=== PATIENT | male | born 1995 | race African-American/Black ===

== ENCOUNTER 2019-09-18 19:28 | Emergency (ER) | payer BC, OTHER ==
[2019-09-18] MEDS ORDERED: ONDANSETRON 4 MG (ODT) TAB ONE (21:32)
--- NOTE | 2019-09-18 21:55 | ER ---
Nurse's Notes [facility] Name: Greg Dukes Age: 24 yrs Sex: Male : 1995 Arrival Date: 09/18/2019 Time: 19:32 Bed 14 Private MD: Diagnosis: Vomiting, unspecified;Diarrhea, unspecified;Otalgia, right ear Presentation: 09/18 19:35 Presenting complaint: Patient states: "The past 2 days I've been throwing up, having aj1 diarrhea and for the past month and a half I've been popping in my ear. Yesterday all day my ear was popping and it feels like its stuffed up. I got one of those ear things from [facility] [employer] but that just made it worse" Denies fever. Reports pain to right ear. Transition of care: patient was not received from another setting of care. Onset of symptoms was 2018. Risk Assessment: Do you want to hurt yourself or someone else? Patient reports no desire to harm self or others. Initial Sepsis Screen: Does the patient meet any 2 criteria? No. Patient's initial sepsis screen is negative. Does the patient have a suspected source of infection? No. Patient's initial sepsis screen is negative. Care prior to arrival: None. 19:35 Method Of Arrival: Ambulatory aj1 19:35 Acuity: ALBERTO 4 aj1 Triage Assessment: 19:39 General: Appears in no apparent distress. comfortable, Behavior is calm, cooperative, aj1 appropriate for age. Pain: Complains of pain in right ear. Pain: Pain currently is 7 out of 10 on a pain scale. EENT: Reports ear pain. Neuro: Level of Consciousness is awake, alert, obeys commands. Cardiovascular: Patient's skin is warm and dry. Respiratory: Airway is patent Respiratory effort is even, unlabored, Respiratory pattern is regular, symmetrical. GI: Reports diarrhea, nausea, vomiting. Historical: - Allergies: 19:39 No Known Allergies; aj1 - Home Meds: 19:39 None [Active]; aj1 - PMHx: 19:39 Asthma; aj1 - PSHx: 19:39 None; aj1 - Immunization history:: Flu vaccine is not up to date. - Social history:: Smoking status: Patient/guardian denies using tobacco. - Ebola Screening: : Patient denies travel to an Ebola-affected area in the 21 days before illness onset. Screenin:00 Abuse screen: Denies threats or abuse. Nutritional screening: No deficits noted. jb4 Tuberculosis screening: No symptoms or risk factors identified. Fall Risk None identified. Assessment: 21:00 General: Appears in no apparent distress. uncomfortable, Behavior is calm, cooperative, jb4 appropriate for age. Pain: Complains of pain in right ear and neck Pain does not radiate. Pain currently is 7 out of 10 on a pain scale. Quality of pain is described as throbbing, Popping. Neuro: Level of Consciousness is awake, alert, obeys commands, Oriented to person, place, time, situation. Cardiovascular: Patient's skin is warm and dry. Respiratory: Airway is patent Respiratory effort is even, unlabored, Respiratory pattern is regular, symmetrical. GI: Reports nausea, vomiting. : No deficits noted. No signs and/or symptoms were reported regarding the genitourinary system. EENT: Ear canal clear on right ear. Derm: Skin is intact, Skin is dry, Skin is normal, Skin temperature is warm. Musculoskeletal: Circulation, motion, and sensation intact. Range of motion: intact in all extremities. 22:07 Reassessment: Patient appears in no apparent distress at this time. Patient and/or jb4 family updated on plan of care and expected duration. Pain level reassessed. Patient is alert, oriented x 3, equal unlabored respirations, skin warm/dry/pink. Vital Signs: 19:39 BP 130 / 86; Pulse 80; Resp 18; Temp 98.1; Pulse Ox 100% on R/A; Weight 111.13 kg (R); aj1 Height 5 ft. 11 in. (180.34 cm) (R); Pain 7/10; 22:00 BP 142 / 94; Pulse 82; Resp 16; Pulse Ox 99% on R/A; jb4 19:39 Body Mass Index 34.17 (111.13 kg, 180.34 cm) aj1 ED Course: 19:32 Patient arrived in ED. cl3 19:39 Triage completed. aj1 19:39 Arm band placed on Patient placed in waiting room, Patient notified of wait time. aj1 20:10 Patricia Ugalde FNP-C is PHCP. snw 20:10 Garret Montenegro MD is Attending Physician. snw 21:00 Patient has correct armband on for positive identification. Bed in low position. Call jb4 light in reach. Side rails up X 1. 21:08 Adolfo Millan, RN is Primary Nurse. jb4 22:08 No provider procedures requiring assistance completed. Patient did not have IV access jb4 during this emergency room visit. Administered Medications: 21:37 Drug: Zofran 4 mg Route: PO; jb4 22:00 Follow up: Response: No adverse reaction; Nausea is decreased jb4 Outcome: 21:54 Discharge ordered by . snw 22:08 Discharged to home ambulatory. jb4 22:08 Condition: stable 22:08 Discharge instructions given to patient, Instructed on discharge instructions, follow up and referral plans. medication usage, Demonstrated understanding of instructions, follow-up care, medications, Prescriptions given X 3. 22:09 Patient left the ED. jb4 Signatures: Bisi Jose RN RN aj1 Patricia Uglade, RN TELEHEALTH-C RN TELEHEALTH-Csnw Adolfo Millan, RN RN jb4 Chantel Piedra cl3
--- NOTE | 2019-09-18 21:55 | EDPHYS ---
Physician Documentation [facility] Name: Greg Dukes Age: 24 yrs Sex: Male : 1995 Arrival Date: 09/18/2019 Time: 19:32 Bed 14 Private MD: ED Physician Garret Montenegro HPI: 09/18 21:08 This 24 yrs old Black Male presents to ER via Ambulatory with complaints of Diarrhea, snw Vomiting. 21:08 The patient presents to the emergency department with nausea, vomiting, diarrhea. snw Onset: The symptoms/episode began/occurred suddenly, 3 day(s) ago, and became persistent. Possible causes: sick contacts, by family, "all of them". The symptoms are aggravated by nothing. Associated signs and symptoms: Pertinent positives: diarrhea, nausea, vomiting, Pertinent negatives: abdominal pain, fever. Severity of symptoms: At their worst the symptoms were moderate in the emergency department the symptoms have improved. The patient has not experienced similar symptoms in the past. It is unknown whether or not the patient has recently seen a physician. states he has been cleaning wax from ears repeatedly and pain/clogged feeling continues. uses earplugs but not until recently. Historical: - Allergies: 19:39 No Known Allergies; aj1 - Home Meds: 19:39 None [Active]; aj1 - PMHx: 19:39 Asthma; aj1 - PSHx: 19:39 None; aj1 - Immunization history:: Flu vaccine is not up to date. - Social history:: Smoking status: Patient/guardian denies using tobacco. - Ebola Screening: : Patient denies travel to an Ebola-affected area in the 21 days before illness onset. ROS: 21:07 Eyes: Negative for injury, pain, redness, and discharge, ENT: Negative for injury, and snw discharge, right ear pain and pressure x 1 month Neck: Negative for injury, pain, and swelling, Cardiovascular: Negative for chest pain, palpitations, and edema, Respiratory: Negative for shortness of breath, cough, wheezing, and pleuritic chest pain, Back: Negative for injury and pain, : Negative for injury, bleeding, discharge, and swelling, MS/Extremity: Negative for injury and deformity, Skin: Negative for injury, rash, and discoloration, Neuro: Negative for headache, weakness, numbness, tingling, and seizure, Psych: Negative for depression, anxiety, suicide ideation, homicidal ideation, and hallucinations. 21:07 Constitutional: Positive for fatigue. 21:07 Abdomen/GI: Positive for nausea, vomiting, and diarrhea, Negative for abdominal pain. Exam: 21:06 Constitutional: This is a well developed, well nourished patient who is awake, alert, snw and in no acute distress. Head/Face: Normocephalic, atraumatic. Eyes: Pupils equal round and reactive to light, extra-ocular motions intact. Lids and lashes normal. Conjunctiva and sclera are non-icteric and not injected. Cornea within normal limits. Periorbital areas with no swelling, redness, or edema. Neck: Trachea midline, no thyromegaly or masses palpated, and no cervical lymphadenopathy. Supple, full range of motion without nuchal rigidity, or vertebral point tenderness. No Meningismus. Chest/axilla: Normal chest wall appearance and motion. Nontender with no deformity. No lesions are appreciated. Cardiovascular: Regular rate and rhythm with a normal S1 and S2. No gallops, murmurs, or rubs. Normal PMI, no JVD. No pulse deficits. Respiratory: Lungs have equal breath sounds bilaterally, clear to auscultation and percussion. No rales, rhonchi or wheezes noted. No increased work of breathing, no retractions or nasal flaring. Abdomen/GI: Soft, non-tender, with normal bowel sounds. No distension or tympany. No guarding or rebound. No evidence of tenderness throughout. Back: No spinal tenderness. No costovertebral tenderness. Full range of motion. Skin: Warm, dry with normal turgor. Normal color with no rashes, no lesions, and no evidence of cellulitis. MS/ Extremity: Pulses equal, no cyanosis. Neurovascular intact. Full, normal range of motion. Neuro: Awake and alert, GCS 15, oriented to person, place, time, and situation. Cranial nerves II-XII grossly intact. Motor strength 5/5 in all extremities. Sensory grossly intact. Cerebellar exam normal. Normal gait. Psych: Awake, alert, with orientation to person, place and time. Behavior, mood, and affect are within normal limits. 21:06 ENT: External ear(s): are unremarkable, Ear canal(s): are normal, TM's: erythema, that is moderate, bilaterally, Mouth: no acute changes, Oral mucosa: normal, Tongue: is normal, Posterior pharynx: erythema, that is moderate, Voice: is normal. Vital Signs: 19:39 BP 130 / 86; Pulse 80; Resp 18; Temp 98.1; Pulse Ox 100% on R/A; Weight 111.13 kg (R); aj1 Height 5 ft. 11 in. (180.34 cm) (R); Pain 7/10; 22:00 BP 142 / 94; Pulse 82; Resp 16; Pulse Ox 99% on R/A; jb4 19:39 Body Mass Index 34.17 (111.13 kg, 180.34 cm) aj1 MDM: 20:58 Patient medically screened. snw 22:04 Data reviewed: vital signs, nurses notes. Data interpreted: Pulse oximetry: on room air snw is 100 %. Interpretation: normal. Counseling: I had a detailed discussion with the patient and/or guardian regarding: the historical points, exam findings, and any diagnostic results supporting the discharge/admit diagnosis, lab results, the need for outpatient follow up, to return to the emergency department if symptoms worsen or persist or if there are any questions or concerns that arise at home. Special discussion: Based on the patient's Hx, exam, and Dx evaluation, there is no indication for emergent surgery or inpatient Tx. It is understood by the patient/guardian that if the Sx's persist or worsen they need to return immediately for re-evaluation. I have referred the patient to see his PCP for further evaluation of high blood pressure. Based on the history and exam findings, there is no indication for further emergent testing or inpatient evaluation. I discussed with the patient/guardian the need to see the primary care provider for further evaluation of the symptoms. 09/18 21:05 Order name: Flu; Complete Time: 21:53 snw 09/18 21:05 Order name: Strep; Complete Time: 21:53 snw 09/18 21:52 Order name: Throat Culture EDMS Administered Medications: 21:37 Drug: Zofran 4 mg Route: PO; jb4 22:00 Follow up: Response: No adverse reaction; Nausea is decreased jb4 Disposition: 09/19 03:11 Co-signature as Attending Physician, Garret Montenegro MD. rn Disposition: 09/18/19 21:54 Discharged to Home. Impression: Vomiting, unspecified, Diarrhea, unspecified, Otalgia, right ear. - Condition is Stable. - Discharge Instructions: Food Choices to Help Relieve Diarrhea, Adult, Diarrhea, Adult, Nausea and Vomiting, Adult, Earache, Adult, Rehydration, Adult. - Prescriptions for Cipro 250 mg Oral Tablet - take 1 tablet by ORAL route every 12 hours for 10 days; 20 tablet. Mobic 7.5 mg Oral Tablet - take 1 tablet by ORAL route once daily take with food; 20 tablet. Ciprodex 0.3- 0.1 % Otic Drops, Suspension - instill 4 drop by OTIC route every 12 hours for 7 days , for ears ONLY; 1 Container. - Work release form, Medication Reconciliation Form, Thank You Letter, Antibiotic Education, Prescription Opioid Use form. - Follow up: Private Physician; When: 2 - 3 days; Reason: Recheck today's complaints, Continuance of care, Re-evaluation by your physician. Follow up: Emergency Department; When: As needed; Reason: Worsening of condition. Signatures: Dispatcher [employer] EDBisi Barreto RN RN aj1 Patricia Ugalde, CARDIOVASCULAR RADIOLOGIC TECHNOLOGIST-C CARDIOVASCULAR RADIOLOGIC TECHNOLOGIST-Csnw Garret Montenegro MD MD rn Bryson, James, RN RN jb4 Corrections: (The following items were deleted from the chart) 09/18 22:09 21:54 09/18/2019 21:54 Discharged to Home. Impression: Vomiting, unspecified; Diarrhea, jb4 unspecified; Otalgia, right ear. Condition is Stable. Forms are Medication Reconciliation Form, Thank You Letter, Antibiotic Education, Prescription Opioid Use. Follow up: Private Physician; When: 2 - 3 days; Reason: Recheck today's complaints, Continuance of care, Re-evaluation by your physician. Follow up: Emergency Department; When: As needed; Reason: Worsening of condition. snw
[2019-09-18 22:28] VITALS: TEMP 98.1
[2019-09-18 22:29] VITALS: BP 142/94; O2SAT 99
== END 2019-09-18 22:09 | disposition home or self-care (01) ==
LOC: ER 19:28
DX: R19.7 Diarrhea, unspecified (principal); H92.01 Otalgia, right ear
CPT/HCPCS: 87070; 87081; 87804; 99283

== ENCOUNTER 2020-01-13 11:12 | Emergency (ER) | payer BC ==
--- NOTE | 2020-01-13 12:12 | EDPHYS ---
Physician Documentation [facility] Name: Greg Dukes Age: 24 yrs Sex: Male : 1995 Arrival Date: 01/13/2020 Time: 11:18 Bed 12 Private MD: ED Physician Aime Walters HPI: 01/12 12:13 This 24 yrs old Black Male presents to ER via Ambulatory with complaints of Sore Throat.snw 12:13 The patient presents with sore throat. The patient describes throat pain as raw, snw scratchy, swollen. Onset: The symptoms/episode began/occurred suddenly, 4 day(s) ago, and became persistent. Associated signs and symptoms: The patient has no apparent associated signs or symptoms. The patient has not experienced similar symptoms in the past. It is unknown whether or not the patient has recently seen a physician. Historical: - Allergies: 11: No Known Allergies; ss - Home Meds: 11: None [Active]; ss - PMHx: : Asthma; ss - PSHx: 11: None; ss - Immunization history:: Adult Immunizations up to date. - Social history:: Smoking status: Patient denies any tobacco usage or history of. ROS: 11:29 Constitutional: Negative for fever, chills, and weight loss, Eyes: Negative for injury, snw pain, redness, and discharge, Neck: Negative for injury, pain, and swelling, Cardiovascular: Negative for chest pain, palpitations, and edema, Respiratory: Negative for shortness of breath, cough, wheezing, and pleuritic chest pain, Abdomen/GI: Negative for abdominal pain, nausea, vomiting, diarrhea, and constipation, Back: Negative for injury and pain, : Negative for injury, bleeding, discharge, and swelling, MS/Extremity: Negative for injury and deformity, Skin: Negative for injury, rash, and discoloration, Neuro: Negative for headache, weakness, numbness, tingling, and seizure, Psych: Negative for depression, anxiety, suicide ideation, homicidal ideation, and hallucinations. 11:29 ENT: Positive for sore throat. Exam: 11:29 Constitutional: This is a well developed, well nourished patient who is awake, alert, snw and in no acute distress. Head/Face: Normocephalic, atraumatic. Eyes: Pupils equal round and reactive to light, extra-ocular motions intact. Lids and lashes normal. Conjunctiva and sclera are non-icteric and not injected. Cornea within normal limits. Periorbital areas with no swelling, redness, or edema. Neck: Trachea midline, no thyromegaly or masses palpated, and no cervical lymphadenopathy. Supple, full range of motion without nuchal rigidity, or vertebral point tenderness. No Meningismus. Chest/axilla: Normal chest wall appearance and motion. Nontender with no deformity. No lesions are appreciated. Cardiovascular: Regular rate and rhythm with a normal S1 and S2. No gallops, murmurs, or rubs. Normal PMI, no JVD. No pulse deficits. Respiratory: Lungs have equal breath sounds bilaterally, clear to auscultation and percussion. No rales, rhonchi or wheezes noted. No increased work of breathing, no retractions or nasal flaring. Abdomen/GI: Soft, non-tender, with normal bowel sounds. No distension or tympany. No guarding or rebound. No evidence of tenderness throughout. Back: No spinal tenderness. No costovertebral tenderness. Full range of motion. Skin: Warm, dry with normal turgor. Normal color with no rashes, no lesions, and no evidence of cellulitis. MS/ Extremity: Pulses equal, no cyanosis. Neurovascular intact. Full, normal range of motion. Neuro: Awake and alert, GCS 15, oriented to person, place, time, and situation. Cranial nerves II-XII grossly intact. Motor strength 5/5 in all extremities. Sensory grossly intact. Cerebellar exam normal. Normal gait. Psych: Awake, alert, with orientation to person, place and time. Behavior, mood, and affect are within normal limits. 11:29 ENT: External ear(s): are unremarkable, Ear canal(s): are normal, TM's: are normal, Nose: is normal, Mouth: is normal, Posterior pharynx: Uvula: edematous, erythema, mild, Voice: is normal. Vital Signs: 11:22 BP 129 / 84; Pulse 79; Resp 15; Temp 97.7(TE); Pulse Ox 98% on R/A; Weight 108.86 kg; ss Height 5 ft. 11 in. (180.34 cm); Pain 7/10; 11:22 Body Mass Index 33.47 (108.86 kg, 180.34 cm) MDM: 11:25 Patient medically screened. snw 12:12 Data reviewed: vital signs, nurses notes. Data interpreted: Pulse oximetry: on room air snw is 98 %. Interpretation: normal. Counseling: I had a detailed discussion with the patient and/or guardian regarding: the historical points, exam findings, and any diagnostic results supporting the discharge/admit diagnosis, the presence of at least one elevated blood pressure reading (>120/80) during this emergency department visit, lab results, the need for outpatient follow up, to return to the emergency department if symptoms worsen or persist or if there are any questions or concerns that arise at home. Special discussion: Based on the history and exam findings, there is no indication for further emergent testing or inpatient evaluation. I discussed with the patient/guardian the need to see the primary care provider for further evaluation of the symptoms. 01/12 11:29 Order name: Strep; Complete Time: 11:48 snw 01/12 11:57 Order name: Throat Culture EDMS Administered Medications: No medications were administered Disposition: 01/13 07:44 Co-signature as Attending Physician, Patricia GREEN I agree with the assessment tw4 and plan of care. Chart complete. Disposition: 01/13/20 12:11 Discharged to Home. Impression: Acute pharyngitis, unspecified. - Condition is Stable. - Discharge Instructions: Pharyngitis. - Prescriptions for Zyrtec 10 mg Oral Tablet - take 1 tablet by ORAL route once daily As needed; 20 tablet. Prednisone 20 mg Oral Tablet - take 2 tablet by ORAL route once daily for 5 days; 10 tablet. - Work release form, Medication Reconciliation Form, Thank You Letter, Antibiotic Education, Prescription Opioid Use form. - Follow up: Emergency Department; When: As needed; Reason: Worsening of condition. Follow up: Private Physician; When: 2 - 3 days; Reason: Recheck today's complaints, Continuance of care, Re-evaluation by your physician. - Problem is new. - Symptoms are unchanged. Signatures: [facility] Patricia Ugalde FNP-C FNP-Mel Kessler RN RN Aime Walters MD MD tw4 Corrections: (The following items were deleted from the chart) 01/12 12:21 12:11 01/13/2020 12:11 Discharged to Home. Impression: Acute pharyngitis, unspecified. ss Condition is Stable. Forms are Medication Reconciliation Form, Thank You Letter, Antibiotic Education, Prescription Opioid Use. Follow up: Emergency Department; When: As needed; Reason: Worsening of condition. Follow up: Private Physician; When: 2 - 3 days; Reason: Recheck today's complaints, Continuance of care, Re-evaluation by your physician. Problem is new. Symptoms are unchanged. snw
--- NOTE | 2020-01-13 12:12 | ER ---
Nurse's Notes [facility] Name: Greg Dukes Age: 24 yrs Sex: Male : 1995 Arrival Date: 01/13/2020 Time: 11:18 Bed 12 Private MD: Diagnosis: Acute pharyngitis, unspecified Presentation: 01/12 11:22 Chief complaint: Patient states: sore throat and swollen tonsils and uvula x 3-4 days. ss Denies fever. Coronavirus screen: The patient has NOT traveled to [place] in the past 14 days. Proceed with normal triage procedures. Ebola Screen: Patient denies exposure to infectious person. Patient denies travel to an Ebola-affected area in the 21 days before illness onset. Initial Sepsis Screen: Does the patient meet any 2 criteria? No. Patient's initial sepsis screen is negative. Does the patient have a suspected source of infection? No. Patient's initial sepsis screen is negative. Risk Assessment: Do you want to hurt yourself or someone else? Patient reports no desire to harm self or others. 11:22 Method Of Arrival: Ambulatory ss 11:22 Acuity: ALBERTO 4 ss Historical: - Allergies: 11:23 No Known Allergies; ss - Home Meds: 11:23 None [Active]; ss - PMHx: 11:23 Asthma; ss - PSHx: 11:23 None; ss - Immunization history:: Adult Immunizations up to date. - Social history:: Smoking status: Patient denies any tobacco usage or history of. Screenin:20 Abuse screen: Denies threats or abuse. Denies injuries from another. Nutritional ss screening: No deficits noted. Tuberculosis screening: Never had TB. Fall Risk None identified. Assessment: 11:22 General: Appears in no apparent distress. comfortable, Behavior is calm, cooperative, ss Denies fever, feeling ill. Pain: Complains of pain in throat Pain currently is 7 out of 10 on a pain scale. Quality of pain is described as sore. Neuro: Level of Consciousness is awake, alert, obeys commands, Oriented to person, place, time, situation. Cardiovascular: Capillary refill < 3 seconds is brisk in bilateral fingers. Respiratory: Airway is patent Respiratory effort is even, unlabored, Respiratory pattern is regular, symmetrical, Breath sounds are clear bilaterally. GI: Patient currently denies diarrhea, nausea, vomiting. : No signs and/or symptoms were reported regarding the genitourinary system. EENT: Throat is reddened. Derm: Skin is intact, is healthy with good turgor. Musculoskeletal: Circulation, motion, and sensation intact. Range of motion: intact in all extremities, Swelling absent. Vital Signs: 11:22 BP 129 / 84; Pulse 79; Resp 15; Temp 97.7(TE); Pulse Ox 98% on R/A; Weight 108.86 kg; ss Height 5 ft. 11 in. (180.34 cm); Pain 7/10; 11:22 Body Mass Index 33.47 (108.86 kg, 180.34 cm) ss ED Course: 11:18 Patient arrived in ED. mr 11:22 Mel Jiménez, RN is Primary Nurse. ss 11:23 Triage completed. ss 11:23 Arm band placed on right wrist. ss 11:24 Patricia Ugalde FNP-C is PHCP. snw 11:24 Aime Walters MD is Attending Physician. snw 11:35 Strep swab sent to lab. ca1 12:20 Patient has correct armband on for positive identification. Bed in low position. Call ss light in reach. 12:20 No provider procedures requiring assistance completed. Patient did not have IV access ss during this emergency room visit. Administered Medications: No medications were administered Outcome: 12:11 Discharge ordered by . snw 12:20 Discharged to home ambulatory. ss 12:20 Condition: good 12:20 Discharge instructions given to patient, family, Instructed on discharge instructions, follow up and referral plans. medication usage, Demonstrated understanding of instructions, follow-up care, medications, Prescriptions given X 2. 12:21 Patient left the ED. ss Signatures: Patricia Ugalde FNP-C TIMBER ROBBER-Csnw Jayda Dc mr Mel Jiménez, RN RN ss Libby Orlando RN RN ca1
[2020-01-13 12:25] VITALS: BP 129/84; TEMP 97.7; O2SAT 98
== END 2020-01-13 12:21 | disposition home or self-care (01) ==
LOC: ER 11:12
DX: J02.9 Acute pharyngitis, unspecified (principal)
CPT/HCPCS: 87070; 87081; 99283

== ENCOUNTER 2021-01-09 17:35 | Emergency (ER) | payer BC ==
--- OUTSIDE RECORDS SUMMARY | 2021-01-09 17:37 | XMS REPORT | Continuity of Care Document ---
:1995 Author Organization [facility] t Address [address] [place] [address] Care Team Providers Name Role Phone Juarez Farooq DO Attending Clinician Doctor Unassigned, Name Attending Clinician Unavailable Problems This patient has no known problems. Allergies, Adverse Reactions, Alerts This patient has no known allergies or adverse reactions. Medications This patient has no known medications. Procedures This patient has no known procedures. Encounters Start End Encounter Admission Attending Care Care Encounter Source Date/Time Date/Time Type Type Clinicians Facility Department ID 2020-07-17 2020-07-17 Emergency O[facility]as [facility] [id number] 16:37:00 18:49:00 Monika Brown [id number] [place] [id number] [place] [id number] 2020-07-17 2020-07-17 Orders Doctor CISNEROS [id number] 00:00:00 00:00:00 Only UnassignedELVIRA [id number] [place] [id number] 2020-03-17 2020-03-17 Orders Doctor CISNEROS [id number] 00:00:00 00:00:00 Only Unassigned, ELVIRA [id number] [place] [id number] Results This patient has no known results.
[2021-01-09] MEDS ORDERED: IBUPROFEN 400 MG TAB ONE (18:53)
--- NOTE | 2021-01-09 18:55 | EDPHYS ---
Physician Documentation [facility] Name: Greg Dukes Age: 25 yrs Sex: Male : 1995 Arrival Date: 01/09/2021 Time: 17:38 Bed 17 Private MD: ED Physician Dionte Bruno HPI: 01/09 18:20 This 25 yrs old Black Male presents to ER via Ambulatory with complaints of Arm kerline swelling. 18:20 This 25 yrs old Black Male presents to ER via Ambulatory with complaints of Arm kerline swelling/ hand swelling. 18:20 The patient or guardian reports decreased range of motion, pain, swelling, tenderness. kerline The complaints affect the right hand diffusely. Context: The problem was sustained at home, resulted from a direct blow, using own fist to strike, sofa. Onset: The symptoms/episode began/occurred this morning. Modifying factors: The symptoms are alleviated by elevation, holding still, ice/coldpack to affected area, the symptoms are aggravated by movement, dependent position. Associated signs and symptoms: The patient has no apparent associated signs or symptoms. Severity of symptoms: At their worst the symptoms were moderate, in the emergency department the symptoms are unchanged. The patient has not experienced similar symptoms in the past. Historical: - Allergies: 17:52 No Known Allergies; ss - Home Meds: 17:52 None [Active]; ss - PMHx: 17:52 Asthma; ss - PSHx: 17:52 None; ss - Immunization history:: Adult Immunizations up to date. - Social history:: Smoking status: Patient reports the use of cigarette tobacco products, denies chronic smoking, but will smoke occasionally. - Family history:: not pertinent. ROS: 18:20 Constitutional: Negative for fever, chills, and weight loss, Eyes: Negative for injury, kerline pain, redness, and discharge, ENT: Negative for injury, pain, and discharge, Neck: Negative for injury, pain, and swelling, Cardiovascular: Negative for chest pain, palpitations, and edema, Respiratory: Negative for shortness of breath, cough, wheezing, and pleuritic chest pain, Abdomen/GI: Negative for abdominal pain, nausea, vomiting, diarrhea, and constipation, Back: Negative for injury and pain, : Negative for injury, bleeding, discharge, and swelling, Skin: Negative for injury, rash, and discoloration, Neuro: Negative for headache, weakness, numbness, tingling, and seizure, Psych: Negative for depression, anxiety, suicide ideation, homicidal ideation, and hallucinations, Allergy/Immunology: Negative for hives, rash, and allergies, Endocrine: Negative for neck swelling, polydipsia, polyuria, polyphagia, and marked weight changes, Hematologic/Lymphatic: Negative for swollen nodes, abnormal bleeding, and unusual bruising. 18:20 MS/extremity: Positive for decreased range of motion, pain, swelling, tenderness, of the right hand. Exam: 18:20 Constitutional: This is a well developed, well nourished patient who is awake, alert, kerline and in no acute distress. Head/Face: Normocephalic, atraumatic. Eyes: Pupils equal round and reactive to light, extra-ocular motions intact. Lids and lashes normal. Conjunctiva and sclera are non-icteric and not injected. Cornea within normal limits. Periorbital areas with no swelling, redness, or edema. ENT: Nares patent. No nasal discharge, no septal abnormalities noted. Tympanic membranes are normal and external auditory canals are clear. Oropharynx with no redness, swelling, or masses, exudates, or evidence of obstruction, uvula midline. Mucous membranes moist. Neck: Trachea midline, no thyromegaly or masses palpated, and no cervical lymphadenopathy. Supple, full range of motion without nuchal rigidity, or vertebral point tenderness. No Meningismus. Chest/axilla: Normal chest wall appearance and motion. Nontender with no deformity. No lesions are appreciated. Cardiovascular: Regular rate and rhythm with a normal S1 and S2. No gallops, murmurs, or rubs. Normal PMI, no JVD. No pulse deficits. Respiratory: Lungs have equal breath sounds bilaterally, clear to auscultation and percussion. No rales, rhonchi or wheezes noted. No increased work of breathing, no retractions or nasal flaring. Abdomen/GI: Soft, non-tender, with normal bowel sounds. No distension or tympany. No guarding or rebound. No evidence of tenderness throughout. Back: No spinal tenderness. No costovertebral tenderness. Full range of motion. Male : Normal genitalia with no discharge or lesions. Skin: Warm, dry with normal turgor. Normal color with no rashes, no lesions, and no evidence of cellulitis. Neuro: Awake and alert, GCS 15, oriented to person, place, time, and situation. Cranial nerves II-XII grossly intact. Motor strength 5/5 in all extremities. Sensory grossly intact. Cerebellar exam normal. Normal gait. Psych: Awake, alert, with orientation to person, place and time. Behavior, mood, and affect are within normal limits. 18:20 Musculoskeletal/extremity: ROM: limited active range of motion, limited passive range of motion, Circulation is intact in all extremities. Sensation intact. Compartment Syndrome exam of affected extremity: is normal. DVT Exam: No signs of deep vein thrombosis. negative Homans' sign noted on exam, no appreciated bluish discoloration, no erythema, no increased warmth, pain, swelling, tenderness. Vital Signs: 17:47 BP 123 / 92; Pulse 96; Resp 16; Temp 98.3(TE); Pulse Ox 100% on R/A; Weight 115.67 kg; ss Height 5 ft. 10 in. (177.80 cm); Pain 10/10; 17:47 Body Mass Index 36.59 (115.67 kg, 177.80 cm) ss MDM: 17:41 Patient medically screened. kerline 18:26 Differential diagnosis: closed fracture, contusion. Data reviewed: vital signs, nurses [facility] notes, radiologic studies. Data interpreted: load out person: rate is 96 beats/min, Pulse oximetry: on room air is 100 %. Test interpretation: by ED physician or midlevel provider: plain radiologic studies. Counseling: I had a detailed discussion with the patient and/or guardian regarding: the historical points, exam findings, and any diagnostic results supporting the discharge/admit diagnosis, radiology results, the need for outpatient follow up, for definitive care, a orthopedic surgeon. 01/09 18:19 Order name: Hand Right 3 View XRAY [facility] 01/09 18:19 Order name: Ice pack; Complete Time: 18:31 [facility] 01/09 18:19 Order name: Splint - Ulnar Gutter; Complete Time: 19:16 [facility] Administered Medications: 18:37 Drug: Motrin 800 mg Route: PO; dm14 19:37 Follow up: Response: No adverse reaction bb Disposition: 01/09/21 18:54 Discharged to Home. Impression: Displaced fracture of base of fifth metacarpal bone, right hand. - Condition is Stable. - Discharge Instructions: Boxer's Fracture, Metacarpal Fracture, Metacarpal Fracture, [id number]. - Prescriptions for Ibuprofen 600 mg Oral Tablet - take 1 tablet by ORAL route every 6 hours As needed take with food; 30 tablet. - Medication Reconciliation Form, Thank You Letter, Antibiotic Education, Prescription Opioid Use form. - Follow up: Private Physician; When: 2 - 3 days; Reason: Recheck today's complaints, Continuance of care, Re-evaluation by your physician. Follow up: Abdulaziz New MD; When: 2 - 3 days; Reason: Recheck today's complaints, Re-evaluation by your physician. - Problem is new. - Symptoms have improved. Signatures: Dispatcher [employer] EDMS Dionte Bruno MD MD cha Ballard, Brenda RN RN Mel Irene RN RN ss Court Manzano RN RN dm14 Corrections: (The following items were deleted from the chart) 19:37 18:54 01/09/2021 18:54 Discharged to Home. Impression: Displaced fracture of base of bb fifth metacarpal bone, right hand. Condition is Stable. Forms are Medication Reconciliation Form, Thank You Letter, Antibiotic Education, Prescription Opioid Use. Follow up: Private Physician; When: 2 - 3 days; Reason: Recheck today's complaints, Continuance of care, Re-evaluation by your physician. Follow up: Abdulaziz New; When: 2 - 3 days; Reason: Recheck today's complaints, Re-evaluation by your physician. Problem is new. Symptoms have improved. kerline
--- NOTE | 2021-01-09 18:55 | ER ---
Nurse's Notes [facility] Name: Greg Dukes Age: 25 yrs Sex: Male : 1995 Arrival Date: 01/09/2021 Time: 17:38 Bed 17 Private MD: Diagnosis: Displaced fracture of base of fifth metacarpal bone, right hand Presentation: 01/09 17:47 Chief complaint: Patient states: R hand pain that began this morning after punching a ss cough. Coronavirus screen: Client denies travel out of the [place] in the last 14 days. Ebola Screen: Patient denies exposure to infectious person. Patient denies travel to an Ebola-affected area in the 21 days before illness onset. Initial Sepsis Screen: Does the patient meet any 2 criteria? No. Patient's initial sepsis screen is negative. Does the patient have a suspected source of infection? No. Patient's initial sepsis screen is negative. Risk Assessment: Do you want to hurt yourself or someone else? Patient reports no desire to harm self or others. Onset of symptoms was January 09, 2021. 17:47 Method Of Arrival: Ambulatory ss 17:47 Acuity: ALBERTO 4 ss Historical: - Allergies: 17:52 No Known Allergies; ss - Home Meds: 17:52 None [Active]; ss - PMHx: 17:52 Asthma; ss - PSHx: 17:52 None; ss - Immunization history:: Adult Immunizations up to date. - Social history:: Smoking status: Patient reports the use of cigarette tobacco products, denies chronic smoking, but will smoke occasionally. - Family history:: not pertinent. Screenin:02 Abuse screen: Denies threats or abuse. Denies injuries from another. Nutritional dm14 screening: No deficits noted. Tuberculosis screening: No symptoms or risk factors identified. Fall Risk None identified. Assessment: 18:02 General: Appears in no apparent distress. comfortable, well groomed, Behavior is calm, dm14 cooperative, appropriate for age. Pain: Complains of pain in Pt hit his couch this morning with a closed fist injuring his right hand. Pain currently is 10 out of 10 on a pain scale. Neuro: No deficits noted. Musculoskeletal: Pt's right hand very swollen, especially the lateral aspect. Pt can move fingers but cannot make a fist or fully extend his fingers. 19:36 Reassessment: Patient is alert, oriented x 3, equal unlabored respirations, skin bb warm/dry/pink. splint to right hand in place with good cap refill pt verbalized understanding of and agrees to plan of care discharge instructions given pt ambulated with steady gait to exit. Vital Signs: 17:47 BP 123 / 92; Pulse 96; Resp 16; Temp 98.3(TE); Pulse Ox 100% on R/A; Weight 115.67 kg; ss Height 5 ft. 10 in. (177.80 cm); Pain 10/10; 17:47 Body Mass Index 36.59 (115.67 kg, 177.80 cm) ED Course: 17:38 Patient arrived in ED. mr 17:41 Dionte Bruno MD is Attending Physician. [facility] 17:51 Triage completed. 17:52 Arm band placed on right wrist. 18:01 Court Manzano, ELIZABETH is Primary Nurse. dm14 18:02 Patient has correct armband on for positive identification. Bed in low position. Call dm14 light in reach. 18:49 Hand Right 3 View XRAY In Process Unspecified. EDMS 18:53 Abdulaziz New MD is Referral Physician. [facility] 19:16 Nademe wrap to right hand Orthoglass splint: Ulnar gutter/Boxer splint applied on right jp3 forearm. 19:37 No provider procedures requiring assistance completed. Patient did not have IV access bb during this emergency room visit. Administered Medications: 18:37 Drug: Motrin 800 mg Route: PO; dm14 19:37 Follow up: Response: No adverse reaction bb Outcome: 18:54 Discharge ordered by . [facility] 19:37 Discharged to home ambulatory. bb 19:37 Condition: stable 19:37 Discharge instructions given to patient, Instructed on discharge instructions, follow up and referral plans. medication usage, Demonstrated understanding of instructions, follow-up care, medications, Prescriptions given X 1. 19:37 Patient left the ED. bb Signatures: Dispatcher [employer] EDAK Dionte Bruno MD MD cha Rivera, Mary mr MonteroSheri, RN RN bb Mel Jiménez RN RN Arik Johnston [email or web address] Court Manzano RN RN dm14
--- NOTE | 2021-01-09 19:45 | RAD REPORT ---
EXAM DESCRIPTION: RAD - Hand Right 3 View - 01/09/2021 6:50 pm CLINICAL HISTORY: Deformity;Pain;Swelling COMPARISON: No comparisons FINDINGS: Oblique fracture is seen involving the base of the fifth metacarpal. No dislocation is see n. Moderate adjacent soft tissue swelling is noted.
[2021-01-09 20:51] VITALS: BP 123/92; TEMP 98.3; O2SAT 100
== END 2021-01-09 19:37 | disposition home or self-care (01) ==
LOC: ER 17:35
PROC: 2W3CX1Z Immobilization of Right Lower Arm using Splint (ICD-10-PCS; principal; 2021-01-09)
DX: S62.316A Displaced fracture of base of fifth metacarpal bone, right hand, initial encounter for closed fracture (principal); W22.03XA Walked into furniture, initial encounter; Y93.89 Activity, other specified; Y92.009 Unspecified place in unspecified non-institutional (private) residence as the place of occurrence of the external cause; F17.210 Nicotine dependence, cigarettes, uncomplicated
CPT/HCPCS: 99284

== ENCOUNTER 2021-01-18 08:37 | Day surgery (SDC) | payer BC ==
[2021-01-18] MEDS ORDERED: propofoL 200 MG/20 ML VIAL IV ONE (09:24)
[2021-01-18] MEDS ORDERED: MIDAZOLAM HCL 2 MG/2 ML INJ ONE (09:24)
[2021-01-18] MEDS ORDERED: FENTANYL CITR 100 MCG/2 ML ONE (09:24)
[2021-01-18] MEDS ORDERED: KETOROLAC 30 MG/ML INJ ONE (09:25)
[2021-01-18] MEDS ORDERED: dexAMETHasone 10 MG/ML VIAL ONE (09:25)
[2021-01-18] MEDS ORDERED: LIDOCAINE 2% MPF 5 ML VIAL ONE (09:25)
[2021-01-18] MEDS ORDERED: Ringers Lactate 1,000 ML IV ONE ×2 (09:29→11:22)
[2021-01-18] MEDS ORDERED: CEFAZOLIN/SWI 1gm 2 GM/20 ML SYR ONE (09:29)
[2021-01-18] MEDS ORDERED: ONDANSETRON 4 MG/2 ML VIAL ONE ×2 (09:30→12:24)
[2021-01-18] MEDS ORDERED: BUPIVACA 0.5%/EPI 0.0005%/PF 30 ML VIAL ONE (10:24)
[2021-01-18] MEDS ORDERED: HYDROMORPHONE HCL 1 MG/ML INJ ONE (12:24)
[2021-01-18] MEDS ORDERED: HYDROCODONE/APAP 10/325 TAB ONE (12:58)
[2021-01-18 13:10] VITALS: TEMP 97.9
[2021-01-18 13:11] VITALS: BP 151/94; O2SAT 100
--- NOTE | 2021-01-18 13:28 | RAD REPORT ---
EXAM DESCRIPTION: RAD - Hand Right 2 View - 01/18/2021 1:13 pm FINDINGS: A total of 193 portable C-arm spot images were obtained during fluoroscopic assisted place ment of fifth metacarpal fracture fixation hardware. No suspicious or unexpected finding. Fluoro time was 6.8 minutes. Cumulative dose was 17.4 mGy.
--- NOTE | 2021-01-18 15:10 | OP ---
Date of Procedure: 01/18/2021 Surgeon: ERIKA PONCE Preoperative Diagnosis: Fracture of right fifth metacarpal base. (S62.306) Postoperative Diagnosis: Fracture of right fifth metacarpal base. (34374) Procedure: Close reduction, percutaneous pinning of right fifth metacarpal base fracture. Anesthesia: General. Estimated Blood Loss: Minimum. Iv Fluids: 1200. Urine Output: Not recorded. Findings: Metacarpal base fracture without CMC dislocation. Two 0.045 inch K-wires placed spanning the facture site, one into the fracture base, the other into the fourth metacarpal base. Indications: Greg Dukes is a 25-year-old right hand dominant male who punched a couch approxim ately one week ago. He was seen at the emergency room where imaging confirmed a right fifth metacarp al base fracture. He was sent to me for subsequent followup. It was not significantly displaced but did have 2 mm of separation, given his age and hand dominant, we discussed close reduction percutane ous pinning to further stabilized the fracture site. We discussed the risks and benefits including b leeding, infection, injury to surrounding structures, malunion, nonunion, pin site infection. After thorough discussion of the risks and benefits, the patient was deemed an appropriate surgical sanjuanita te. Procedure In Detail: After written consent, the patient was brought to the operating room, pressure points were padded. SCDs were turned on. IV antibiotics were given. The patient was then placed un brandon general anesthesia. A time-out was then performed. The arm was abducted and table was turned 90 degrees. His hand was cleaned with some alcohol, then he was prepped and draped in usual fashion. First fluoroscopy was used to confirm the fracture, which was the right fifth metacarpal base. Of no te, there was no CMC dislocation with this. Two 0.045 inch K-wires were placed through the fifth met acarpal shaft spanning the fracture site, one landed into the fracture base, the other into the fourt h metacarpal base and reduction was confirmed by fluoroscopy. After this the pins were cut short and pin caps were placed on. Skin was then cleansed and dried. A hematoma block was placed with 0.25% Marcaine with epinephrine with total of 10 cc. After this pin sites were dressed with Xeroform and a bulky volar based ulnar gutter splint was placed. The patient tolerated the procedure well. All in strument counts and laparotomy pads were counted for by at the end of the procedure. Complications: None. Disposition: To PACU, then home. He will be seen on postop at 2 weeks for followup with imaging. SABIHA/ELIAS Voice ID: [id number] Report ID: [id number]
== END 2021-01-18 13:10 | disposition home or self-care (01) ==
LOC: OR 08:37
PROVIDERS: ATTEND Plastic Surgery
PROC: 0PSP34Z Reposition Right Metacarpal with Internal Fixation Device, Percutaneous Approach (ICD-10-PCS; principal; 2021-01-18 10:00)
DX: S62.306A Unspecified fracture of fifth metacarpal bone, right hand, initial encounter for closed fracture (principal); U07.1 COVID-19; J45.909 Unspecified asthma, uncomplicated
CPT/HCPCS: 73120; 26650; U0003; J2704; J2250; J3010; J1100; J1170; J0690; J7120 ×2; J2405 ×2

== ENCOUNTER 2021-02-06 22:39 | Emergency (ER) | payer BC ==
[2021-02-07] MEDS ORDERED: MORPHINE 4 MG/ML SYR ONE (00:12)
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
[2021-02-07 07:05] VITALS: BP 123/86; TEMP 97.8; O2SAT 98
--- NOTE | 2021-02-08 12:30 | RAD REPORT ---
EXAM DESCRIPTION: RAD - Hand Right 3 View - 02/07/2021 12:11 am CLINICAL HISTORY: Trauma. COMPARISON: Right hand radiographs from February 02, 2021. TECHNIQUE: Three views of the right hand: PA, oblique, and lateral. FINDINGS: Subacute displaced fracture at the base of the fifth metacarpal. No definite intra-articul ar extension. No definite osseous bridging. No significant change in alignment as compared to the renu or study. However, there has been retraction of the ulnar-most percutaneous pin by approximately 1.8 cm. The additional pin has less degree of retraction, by approximately 0.8 cm. Mild disuse osteopenia in the fifth metacarpal. IMPRESSION: Interval retraction of the two percutaneous pins. No significant change in alignment of the subacute displaced fifth metacarpal base fracture. Electronically signed by: Reba Romero MD 02/07/2021 12:41 AM CDT Due to temporary technical issues with the PACS/Fluency reporting system, reports are being signed by the in house radiologist without review as a courtesy to ensure prompt reporting. The interpreting r adiologist is fully responsible for the content of the report.
== END 2021-02-07 02:51 | disposition home or self-care (01) ==
LOC: ER 22:39
PROC: 2W3CX1Z Immobilization of Right Lower Arm using Splint (ICD-10-PCS; principal; 2021-02-07)
DX: S62.91XG Unspecified fracture of right hand, subsequent encounter for fracture with delayed healing (principal); F17.210 Nicotine dependence, cigarettes, uncomplicated
CPT/HCPCS: 96372; 99283

== ENCOUNTER 2021-05-18 18:04 | Emergency (ER) | payer BC ==
--- OUTSIDE RECORDS SUMMARY | 2021-05-18 18:12 | XMS REPORT | Continuity of Care Document ---
:1995 Author Organization [facility] t Address [address] [place] [address] Care Team Providers Name Role Phone Juarez [...] Facility Department ID 2020-07-17 2020-07-17 Emergency Oseas [facility] [id number] 16:37:00 18:49:00 Monika Brown [id number] [place] [id number] [place] [phone] [id number] 2020-07-17 2020-07-17 Orders Doctor CISNEROS [id number] 00:00:00 00:00:00 Only Unassigned, ELVIRA [id number] [place] [id number] [id number] 2020-03-17 2020-03-17 Orders Doctor CISNEROS [id number] 00:00:00 00:00:00 Only Unassigned, ELVIRA [id number] [place] [phone] [id number] Results This patient has no known results.
--- NOTE | 2021-05-18 19:43 | EDPHYS ---
Physician Documentation [facility] Name: Greg Dukes Age: 25 yrs Sex: Male : 1995 Arrival Date: 05/18/2021 Time: 18:06 Bed 12 Private MD: ED Physician Feliz Murrieta HPI: 05/18 19:42 This 25 yrs old Black Male presents to ER via Ambulatory with complaints of Sore Throat.pm1 19:42 The patient presents with sore throat. The patient describes throat pain as raw, pm1 scratchy. Onset: The symptoms/episode began/occurred 2 day(s) ago. Severity of symptoms: in the emergency department the symptoms are actually worse. Modifying factors: The symptoms are alleviated by nothing, the symptoms are aggravated by foods, swallowing, Patient's oral intake status: good The patient has had contact with sick spouse, strep throat. Associated signs and symptoms: Pertinent positives: headache, Pertinent negatives cough, fever, shortness of breath. The patient has not recently seen a physician. diagnosed with strep throat 2 days ago. Historical: - Allergies: 18:15 No Known Allergies; sv - PMHx: 18:15 Asthma; sv - Immunization history:: Adult Immunizations up to date, Client reports having NOT received the Covid vaccine. - Social history:: Smoking status: Patient reports the use of cigarette tobacco products, smokes one-half pack cigarettes per day. ROS: 19:42 Constitutional: Negative for fever, chills, and weight loss. pm1 19:42 Neck: Negative for injury, pain, and swelling, Cardiovascular: Negative for chest pain, palpitations, and edema, Respiratory: Negative for shortness of breath, cough, wheezing, and pleuritic chest pain, Abdomen/GI: Negative for abdominal pain, nausea, vomiting, diarrhea, and constipation. 19:42 ENT: Positive for sore throat, Negative for ear pain, difficulty swallowing, difficulty handling secretions, hoarseness. 19:42 Neuro: Positive for headache. 19:42 All other systems are negative. Exam: 19:42 Constitutional: This is a well developed, well nourished patient who is awake, alert, pm1 and in no acute distress. Head/Face: Normocephalic, atraumatic. 19:42 Neck: Trachea midline, no thyromegaly or masses palpated, and no cervical lymphadenopathy. Supple, full range of motion without nuchal rigidity, or vertebral point tenderness. No Meningismus. 19:42 Skin: Warm, dry with normal turgor. Normal color with no rashes, no lesions, and no evidence of cellulitis. MS/ Extremity: Pulses equal, no cyanosis. Neurovascular intact. Full, normal range of motion. 19:42 Eyes: Exam is negative for acute changes, Periorbital structures: appear normal, Extraocular movements: no acute changes, Conjunctiva: normal, no injection, Sclera: no acute changes, icterus, is not appreciated. 19:42 ENT: Posterior pharynx: Tonsils: bilaterally enlarged, with erythema, with exudate, no ulcerations, erythema, that is moderate, peritonsillar mass, is not appreciated, pooling of secretions, is not appreciated. 19:42 Cardiovascular: Rate: normal, Rhythm: regular, Pulses: no pulse deficits are appreciated. 19:42 Respiratory: Exam negative for acute changes, respiratory distress, shortness of breath. 19:42 Neuro: Exam negative for acute changes, Orientation: is normal, Mentation: is normal, Motor: is normal, moves all fours, Gait: is steady, at a normal pace, without difficulty. Vital Signs: 18:16 BP 115 / 77; Pulse 83; Resp 16; Temp 98; Pulse Ox 99% ; Height 5 ft. 11 in. (180.34 cm);sv MDM: 19:37 Patient medically screened. pm1 19:42 Data reviewed: vital signs. Data interpreted: Pulse oximetry: on room air is 99 %. pm1 Interpretation: normal. Counseling: I had a detailed discussion with the patient and/or guardian regarding: the historical points, exam findings, and any diagnostic results supporting the discharge/admit diagnosis, the need for outpatient follow up, to return to the emergency department if symptoms worsen or persist or if there are any questions or concerns that arise at home. Administered Medications: No medications were administered Disposition: 05/19 08:03 Co-signature as Attending Physician, Feliz Murrieta MD. mh7 Disposition Summary: 05/18/21 19:42 Discharge Ordered Location: Home pm1 Problem: new pm1 Symptoms: have improved pm1 Condition: Stable pm1 Diagnosis - Acute pharyngitis, unspecified pm1 Followup: pm1 - With: Emergency Department - When: As needed - Reason: Worsening of condition Followup: pm1 - With: Private Physician - When: 2 - 3 days - Reason: Recheck today's complaints, Continuance of care, Re-evaluation by your physician Discharge Instructions: - Discharge Summary Sheet pm1 - Pharyngitis pm1 - Strep Throat, Adult pm1 Forms: - Medication Reconciliation Form pm1 - Work release form pm1 - Thank You Letter pm1 - Antibiotic Education pm1 - Prescription Opioid Use pm1 Prescriptions: - Amoxicillin 500 mg Oral Capsule - take 1 capsule by ORAL route every 8 hours for 10 days; 30 tablet; Refills: 0, pm1 Product Selection Permitted Signatures: Dispatcher [employer] Juana Torres RN RN sv Marinas, Patrick, NP [employer] pm1 Feliz Murrieta MD MD mh7
--- NOTE | 2021-05-18 19:43 | ER ---
Nurse's Notes [facility] Name: Greg Dukes Age: 25 yrs Sex: Male : 1995 Arrival Date: 05/18/2021 Time: 18:06 Bed 12 Private MD: Diagnosis: Acute pharyngitis, unspecified Presentation: 05/18 18:15 Chief complaint: Patient states: "I'm pretty sure I have strep, my went to the ER sv and she has strep." c/o headache. Coronavirus screen: Client denies travel out of the [place] in the last 14 days. At this time, the client does not indicate any symptoms associated with coronavirus-19. Ebola Screen: No symptoms or risks identified at this time. Risk Assessment: Do you want to hurt yourself or someone else? Patient reports no desire to harm self or others. Onset of symptoms was May 18, 2021. 18:15 Method Of Arrival: Ambulatory sv 18:15 Acuity: ALBERTO 4 sv 18:16 Initial Sepsis Screen: Does the patient meet any 2 criteria? No. Patient's initial sv sepsis screen is negative. Does the patient have a suspected source of infection? No. Patient's initial sepsis screen is negative. Triage Assessment: 18:17 General: Appears in no apparent distress. uncomfortable, Behavior is calm, cooperative, sv appropriate for age. Neuro: Level of Consciousness is awake, alert, obeys commands, Oriented to person, place, time, situation, Gait is steady. Respiratory: Respiratory effort is even, unlabored. Historical: - Allergies: 18:15 No Known Allergies; sv - PMHx: 18:15 Asthma; sv - Immunization history:: Adult Immunizations up to date, Client reports having NOT received the Covid vaccine. - Social history:: Smoking status: Patient reports the use of cigarette tobacco products, smokes one-half pack cigarettes per day. Screenin:58 Abuse screen: Denies threats or abuse. Nutritional screening: No deficits noted. bb Tuberculosis screening: No symptoms or risk factors identified. Fall Risk None identified. Assessment: 19:58 General: Appears in no apparent distress. Behavior is calm, cooperative. Pain: bb Complains of pain in throat. Neuro: Level of Consciousness is awake, alert, obeys commands, Oriented to person, place, time, situation. Cardiovascular: Capillary refill < 3 seconds Patient's skin is warm and dry. Respiratory: Airway is patent Respiratory effort is even, unlabored, Breath sounds are clear bilaterally. GI: No signs and/or symptoms were reported involving the gastrointestinal system. EENT: Throat is reddened. Derm: Skin is dry, Skin is normal, Skin temperature is warm. Musculoskeletal: Circulation, motion, and sensation intact. 19:59 Reassessment: Patient is alert, oriented x 3, equal unlabored respirations, skin bb warm/dry/pink. pt verbalized understanding of and agrees to plan of care discharge instructions given pt ambulated with steady gait to exit. Vital Signs: 18:16 BP 115 / 77; Pulse 83; Resp 16; Temp 98; Pulse Ox 99% ; Height 5 ft. 11 in. (180.34 cm);sv ED Course: 18:06 Patient arrived in ED. ds1 18:15 Triage completed. sv 18:15 Arm band placed on. sv 19:37 Florin Landeros NP is PHCP. pm1 19:37 Feliz Murrieta MD is Attending Physician. pm1 19:57 Sheri Montero RN is Primary Nurse. bb 19:58 Patient has correct armband on for positive identification. Call light in reach. bb 19:58 No provider procedures requiring assistance completed. Patient did not have IV access bb during this emergency room visit. Administered Medications: No medications were administered Outcome: 19:42 Discharge ordered by MD. pm1 20:00 Discharged to home ambulatory. bb 20:00 Condition: stable 20:00 Discharge instructions given to patient, Instructed on discharge instructions, follow up and referral plans. medication usage, Demonstrated understanding of instructions, follow-up care, medications, Prescriptions given X 1. 20:01 Patient left the ED. bb Signatures: Juana Espinoza RN RN sv Sanford, Demi ds1 Sheri Montero RN RN bb Marinas, Patrick, NP [employer] pm1 Corrections: (The following items were deleted from the chart) 18:18 18:16 Pulse 83bpm; Resp 16bpm; Pulse Ox 99%; Temp 98F; Height 5 ft. 11 in.; sv sv
[2021-05-18 20:21] VITALS: BP 115/77; TEMP 98; O2SAT 99
== END 2021-05-18 20:01 | disposition home or self-care (01) ==
LOC: ER 18:04
DX: J02.9 Acute pharyngitis, unspecified (principal); F17.210 Nicotine dependence, cigarettes, uncomplicated

== ENCOUNTER 2021-11-08 09:49 | Emergency (ER) | payer BC ==
--- OUTSIDE RECORDS SUMMARY | 2021-11-08 09:53 | XMS REPORT | Continuity of Care Document ---
:1995 Author Organization [facility] t Address [address] [place] [address] Care Team Providers Name Role Phone Pcp, Does Not Have A Primary Care Physician Leigh Fisher Attending Clinician Leigh HUTCHINS Attending Clinician Unavailable Juarez Farooq DO Attending Clinician Doctor Unassigned, Name Attending Clinician Unavailable Payers Payer Name Policy Type Policy Number Effective Date Expiration Date S ource Problems Condition Condition Condition Status Onset Resolution Last Treating Co mments Source Name Details Category Date Date Treatment Clinician Date No known No known Disease Unive rs active active ity of problems problems [facility] Allergies, Adverse Reactions, Alerts Allergy Allergy Status Severity Reaction(s) Onset Inactive Treating Comm ents Source Name Type Date Date Clinician Other Propensi Active Swelling Horses Univer s Coram-3s ty to 11-25 ity of adverse 00:00: [place] reaction 00 [facility] s Branch OTHER DRUG Active Swelling 0 Univers OMEGA-3S INGREDI 1-13 ity of 00:00: [place] 00 Medical Branch Social History Social Habit Start Date Stop Date Quantity Comments Source Exposure to Not sure [facility] SARS-CoV-2 (event) Medica l Branch Sex Assigned At [birth year] [facility] 00:00:00 00:00:00 [facility] Smoking Status Start Date Stop Date Source Unknown if ever smoked [facility] Medications Ordered Filled Start Stop Current Ordering Indication Dosage Frequency Signature Comments Components Source Medication Medication Date Date Medication? Clinician (SIG) Name Name janna 2020- No 1000mg 1,000 mg, Univers n 07-09 Oral, ity of (ZITHROMAX) 02:15: 01:46 [place]CE[place] 1 [place] :[place] dose, [facility] 1,000 mg 07/08/21 at [place] [address], MED
Re ason for Anti-Infec tive: Empiric Therapy for Suspected Infection< br>Empiric Therapy Site: Skin / Soft tissue
Duration of therapy: 72 hours cefTRIAXone 2020- No 500mg 500 mg, U nivers (ROCEPHIN) 07-09 Intramuscu it y of injection 02:15: 01:47 lar, ONCE, [place] 500 mg 00 :00 1 dose, Medical [facility] 07/08/21 at 2115, MED
Re ason for Anti-Infec tive: Empiric Therapy for Suspected Infection< br>Empiric Therapy Site: Pelvic
Duration of therapy: 72 hours azithromyci 2020- No 1000mg 1,000 mg, [facility] n 07-09 Oral, ity of (ZITHROMAX) 02:15: 01:46 ONCE, 1 [place] :[place] dose, [facility] Medical 1,000 mg 07/08/21 at [place] [address], MED
Re ason for Anti-Infec tive: Empiric Therapy for Suspected Infection< br>Empiric Therapy Site: Skin / Soft tissue
Duration of therapy: 72 hours cefTRIAXone 2020- No 500mg 500 mg, U nivers (ROCEPHIN) 07-09 Intramuscu it y of injection 02:15: 01:47 lar, ONCE, [place] 500 mg 00 :00 1 dose, Medical [facility] Branch 07/08/21 at 2115, MED
Re ason for Anti-Infec tive: Empiric Therapy for Suspected Infection< br>Empiric Therapy Site: Pelvic
Duration of therapy: 72 hours phenazopyri Yes [id number] 200mg Take 1 Univers dine 200 mg 07-08 tablet by ity of tablet 00:00: mouth 3 [place] (three) Medical times Branch daily as needed for Pain. phenazopyri Yes [id number] 200mg Take 1 Univers dine 200 mg 8- tablet by ity of tablet 00:00: mouth 3 [place] (three) Medical times [place] daily as needed for Pain. cefdinir 2020- No [id number] 300mg Take 1 U nivers 300 mg 07-08 capsule by ity of capsule 00:00: 04:59 mouth 2 [place] 00 :00 (two) Medical times Branch daily for 10 days. cefdinir 2020- No [id number] 300mg Take 1 U nivers 300 mg 07-08 capsule by ity of capsule 00:00: 04:59 mouth 2 [place] 00 :00 (two) Medical times [place] daily for 10 days. penicillin 2019- No 1.210 1.2 Unive rs g 07-17 Million ity of benzathine 23:45: 23:30 Units, [place] (BICILLIN 00 :00 Intramuscu Medi snehal L-A) lar, ONCE, Branch injection 1 dose, 1.2 Million 07/17/20 Units at 1845, MED
Re ason for Anti-Infec tive: Documented Infection< br>Documen cole Infection Site: Other
O ther site: throat< br>Duratio n of Therapy: Other (see Comments) acetaminoph 2019- No 650mg 650 mg, U nivers en 07-17 Oral, ity of (TYLENOL) 22:00: 22:48 ONCE, 1 [place] tablet 650 00 :00 dose, Fri Medi snehal mg 07/17/20 at Branch 1700, MED penicillin 2019- No [id number] 500mg Take 1 Univers v potassium 07-17 tablet by it y of 500 mg 00:00: 00:00 mouth 2 [place] tablet 00 :00 (two) Medical times Branch daily for 10 days. azithromyci Yes 250mg Take 1 Tab Univers n 1-13 by mouth ity of (ZITHROMAX) 00:00: [place]. [place] 250 mg 00 [place] tablet Branch benzonatate 2016-0 Yes 100mg Take 1 Cap Univers (TESSALON 1-13 by mouth 3 ity of PERLES) 100 00:00: (three) [place] as mg capsule 00 times Medical daily as Branch needed for Cough. azithromyci 2016-0 Yes 250mg Take 1 Tab Univers n 1-13 by mouth ity of (ZITHROMAX) 00:00: [place]. [place] 250 mg 00 [place] tablet Branch benzonatate 2016-0 Yes 100mg Take 1 Cap Univers (TESSALON 1-13 by mouth 3 ity of PERLES) 100 00:00: (three) [place] as mg capsule 00 times Medical daily as Branch needed for Cough. azithromyci 2016-0 Yes 250mg Take 1 Tab Univers n 1-13 by mouth ity of (ZITHROMAX) 00:00: [place]. [place] 250 mg 00 Medical tablet Branch benzonatate 2016-0 Yes 100mg Take 1 Cap Univers (TESSALON 1-13 by mouth 3 ity of PERLES) 100 00:00: (three) [place] as mg capsule 00 times Medical daily as Branch needed for Cough. azithromyci 2015-0 Yes 250mg Take 1 Tab Univers n 1-13 by mouth ity of (ZITHROMAX) 00:00: [place]. [place] 250 mg 00 Medical tablet Branch benzonatate 2015-0 Yes 100mg Take 1 Cap Univers (TESSALON 1-13 by mouth 3 ity of PERLES) 100 00:00: (three) [place] as mg capsule 00 times Medical daily as Branch needed for Cough. azithromyci 2016-0 Yes 250mg Take 1 Tab Univers n 1-13 by mouth ity of (ZITHROMAX) 00:00: daily. [place] 250 mg 00 Medical tablet Branch benzonatate 2015-0 Yes 100mg Take 1 Cap Univers (TESSALON 1-13 by mouth 3 ity of PERLES) 100 00:00: (three) [place] as mg capsule 00 times Medical daily as Branch needed for Cough. Immunizations Ordered Immunization Filled Immunization Date Status Commen ts Source Name Name Meningococcal 2009 Completed University of Vaccine 00:00:00 [facility] [place] [facility] TDAP 2009 Completed University of 00:00:00 [facility] [place] [facility] Meningococcal 2009 Completed University of Vaccine 00:00:00 [facility] [place] [facility] TDAP 2009 Completed University of 00:00:00 [facility] [place] [facility] Meningococcal 2009 Completed University of Vaccine 00:00:00 [facility] [place] [facility] TDAP 2009 Completed University of 00:00:00 [facility] [place] [facility] Meningococcal 2009 Completed University of Vaccine 00:00:00 [facility] [place] [facility] TDAP 2009 Completed University of 00:00:00 [facility] [place] [facility] Meningococcal 2009 Completed University of Vaccine 00:00:00 [facility] [place] [facility] Tdap 2009 Completed University of 00:00:00 [facility] [place] [facility] Varicella 2001 Completed University of (varivax)(chicken 00:00:00 [place] M edical pox) Branch Varicella 2001 Completed University of (varivax)(chicken 00:00:00 [place] M edical pox) Branch Varicella 2001 Completed University of (varivax)(chicken 00:00:00 [place] M [place]ical pox) Branch Varicella 2001 Completed University of (varivax)(chicken 00:00:00 [place] M edical pox) Branch Varicella 2001 Completed University of (varivax)(chicken 00:00:00 [place] M edical pox) Branch MMR 2001-06-14 Completed University of 00:00:00 [facility] [place] [facility] Polio (IPV/OPV) 2001-06-14 Completed Universit y of 00:00:00 [facility] [place] [facility] DTAP 2001-06-14 Completed University of 00:00:00 [facility] [place] [facility] MMR 2001-06-14 Completed University of 00:00:00 [facility] [place] [facility] Polio (IPV/OPV) 2001-06-14 Completed Universit y of 00:00:00 [facility] [place] [facility] DTAP 2001-06-14 Completed University of 00:00:00 [facility] [place] [facility] MMR 2001-06-14 Completed University of 00:00:00 [facility] [place] [facility] Polio (IPV/OPV) 2001-06-14 Completed Universit y of 00:00:00 [facility] [place] [facility] DTAP 2001-06-14 Completed University of 00:00:00 [facility] [place] [facility] MMR 2001-06-14 Completed University of 00:00:00 [facility] [place] [facility] Polio (IPV/OPV) 2001-06-14 Completed Universit y of 00:00:00 [facility] [place] [facility] DTAP 2001-06-14 Completed University of 00:00:00 [facility] [place] [facility] MMR 2001-06-14 Completed University of 00:00:00 [facility] [place] [facility] Polio (IPV/OPV) 2001-06-14 Completed Universit y of 00:00:[address] [facility] Branch DTAP 2001-06-14 Completed University of 00:00:00 [facility] [place] [facility] MMR 2000-06-29 Completed University of 00:00:00 [facility] [place] [facility] Polio (IPV/OPV) 2000-06-29 Completed Universit y of 00:00:00 [facility] [place] [facility] Varicella 2000-06-29 Completed University of (varivax)(chicken 00:00:00 [place] M edical pox) Branch DTAP 2000-06-29 Completed University of 00:00:00 [facility] [place] [facility] HIB 4 Dose Schedule 2000-06-29 Completed Unive rsity of 00:00:00 [facility] [place] [facility] MMR 2000-06-29 Completed University of 00:00:00 [facility] [place] [facility] Polio (IPV/OPV) 2000-06-29 Completed Universit y of 00:00:00 [facility] [place] [facility] Varicella 2000-06-29 Completed University of (varivax)(chicken 00:00:00 [place] M edical pox) Branch DTAP 2000-06-29 Completed University of 00:00:00 [facility] [place] [facility] HIB 4 Dose Schedule 2000-06-29 Completed Unive rsity of 00:00:00 [facility] [place] [facility] MMR 2000-06-29 Completed University of 00:00:00 [facility] [place] [facility] Polio (IPV/OPV) 2000-06-29 Completed Universit y of 00:00:00 [facility] [place] [facility] Varicella 2000-06-29 Completed University of (varivax)(chicken 00:00:00 [place] M edical pox) Branch DTAP 2000-06-29 Completed University of 00:00:00 [facility] [place] [facility] HIB 4 Dose Schedule 2000-06-29 Completed Unive rsity of 00:00:00 [facility] [place] [facility] MMR 2000-06-29 Completed University of 00:00:00 [facility] [place] [facility] Polio (IPV/OPV) 2000-06-29 Completed Universit y of 00:00:00 [facility] [place] [facility] Varicella 2000-06-29 Completed University of (varivax)(chicken 00:00:00 [place] M edical pox) Branch DTAP 2000-06-29 Completed University of 00:00:00 [place] [facility] HIB 4 Dose Schedule 2000-06-29 Completed Unive rsity of 00:00:00 [facility] [place] [facility] MMR 2000-06-29 Completed University of 00:00:00 [facility] [place] [facility] Polio (IPV/OPV) 2000-06-29 Completed Universit y of 00:00:00 [facility] [place] [facility] Varicella 2000-06-29 Completed University of (varivax)(chicken 00:00:00 [place] M edical pox) Branch DTAP 2000-06-29 Completed University of 00:00:00 [facility] [place] [facility] HIB 4 Dose Schedule 2000-06-29 Completed Unive rsity of 00:00:00 [facility] [place] [facility] Hep B, Adol or Pedi 1998-01-13 Completed Unive rsity of Dosage 00:00:00 [facility] [place] [facility] DTAP 1998-01-13 Completed University of 00:00:00 [facility] [place] [facility] HIB 4 Dose Schedule 1998-01-13 Completed Unive rsity of 00:00:00 [facility] [place] [facility] Hep B, Adol or Pedi 1998-01-13 Completed Unive rsity of Dosage 00:00:00 [facility] [place] [facility] DTAP 1998-01-13 Completed University of 00:00:00 [facility] [place] [facility] HIB 4 Dose Schedule 1998-01-13 Completed Unive rsity of 00:00:00 [facility] [place] [facility] Hep B, Adol or Pedi 1998-01-13 Completed Unive rsity of Dosage 00:00:00 [facility] [place] [facility] DTAP 1998-01-13 Completed University of 00:00:00 [facility] [place] [facility] HIB 4 Dose Schedule 1998-01-13 Completed Unive rsity of 00:00:00 [facility] [place] [facility] Hep B, Adol or Pedi 1998-01-13 Completed Unive rsity of Dosage 00:00:00 [facility] [place] [facility] DTAP 1998-01-13 Completed University of 00:00:00 [facility] [place] [facility] HIB 4 Dose Schedule 1998-01-13 Completed Unive rsity of 00:00:00 [facility] [place] [facility] Hep B, Adol or Pedi 1998-01-13 Completed Unive rsity of Dosage 00:00:00 [facility] [place] [facility] DTAP 1998-01-13 Completed University of 00:00:00 [facility] [place] [facility] HIB 4 Dose Schedule 1998-01-13 Completed Unive rsity of 00:00:00 [facility] [place] [facility] Polio (IPV/OPV) 1997 Completed Universit y of 00:00:00 [place] [facility] DTAP 1997 Completed University of 00:00:00 [place] [facility] HIB 4 Dose Schedule 1997 Completed Unive rsity of 00:00:00 [place] [facility] Polio (IPV/OPV) 1997 Completed Universit y of 00:00:00 [place] [facility] DTAP 1997 Completed University of 00:00:00 [place] [facility] HIB 4 Dose Schedule 1997 Completed Unive rsity of 00:00:00 [place] [facility] Polio (IPV/OPV) 1997 Completed Universit y of 00:00:00 [place] [facility] DTAP 1997 Completed University of 00:00:00 [place] [facility] HIB 4 Dose Schedule 1997 Completed Unive rsity of 00:00:00 [place] [facility] Polio (IPV/OPV) 1997 Completed Universit y of 00:00:00 [place] [facility] DTAP 1997 Completed University of 00:00:00 [place] [facility] HIB 4 Dose Schedule 1997 Completed Unive rsity of 00:00:00 [place] [facility] Polio (IPV/OPV) 1997 Completed Universit y of 00:00:00 [place] [facility] DTAP 1997 Completed University of 00:00:00 [place] [facility] HIB 4 Dose Schedule 1997 Completed Unive rsity of 00:00:[address] [facility] Branch Hep B, Adol or Pedi 1997 Completed Unive rsity of Dosage 00:00:00 [place] [facility] Polio (IPV/OPV) 1997 Completed Universit y of 00:00:00 [place] [facility] DTAP 1997 Completed University of 00:00:00 [place] [facility] HIB 4 Dose Schedule 1997 Completed Unive rsity of 00:00:00 [place] [facility] Hep B, Adol or Pedi 1997 Completed Unive rsity of Dosage 00:00:00 [place] [facility] Polio (IPV/OPV) 1997 Completed Universit y of 00:00:00 [place] [facility] DTAP 1997 Completed University of 00:00:00 [place] [facility] HIB 4 Dose Schedule 1997 Completed Unive rsity of 00:00:00 [place] [facility] Hep B, Adol or Pedi 1997 Completed Unive rsity of Dosage 00:00:00 [facility] [place] [facility] Polio (IPV/OPV) 1997 Completed Universit y of 00:00:00 [facility] [place] [facility] DTAP 1997 Completed University of 00:00:00 [facility] [place] [facility] HIB 4 Dose Schedule 1997 Completed Unive rsity of 00:00:00 [facility] [place] [facility] Hep B, Adol or Pedi 1997 Completed Unive rsity of Dosage 00:00:00 [facility] [place] [facility] Polio (IPV/OPV) 1997 Completed Universit y of 00:00:00 [facility] [place] [facility] DTAP 1997 Completed University of 00:00:00 [facility] [place] [facility] HIB 4 Dose Schedule 1997 Completed Unive rsity of 00:00:00 [facility] [place] [facility] Hep B, Adol or Pedi 1997 Completed Unive rsity of Dosage 00:00:00 [facility] [place] [facility] Polio (IPV/OPV) 1997 Completed Universit y of 00:00:00 [facility] [place] [facility] DTAP 1997 Completed University of 00:00:00 [facility] [place] [facility] HIB 4 Dose Schedule 1997 Completed Unive rsity of 00:00:[address] [facility] Branch Hep B, Adol or Pedi 1997 Completed Unive rsity of Dosage 00:00:00 [facility] [place] [facility] Hep B, Adol or Pedi 1997 Completed Unive rsity of Dosage 00:00:00 [facility] [place] [facility] Hep B, Adol or Pedi 1997 Completed Unive rsity of Dosage 00:00:00 [facility] Branch Hep B, Adol or Pedi 1997 Completed Unive rsity of Dosage 00:00:00 [facility] Branch Hep B, Adol or Pedi 1997 Completed Unive rsity of Dosage 00:00:00 [facility] [place] [facility] Vital Signs Vital Name Observation Time Observation Value Comments Source Systolic blood 2021-07-09 02:57:42 129 mm[Hg] Univer sity of pressure [facility] Diastolic blood 2021-07-09 02:57:42 84 mm[Hg] Unive rsity of pressure [facility] Heart rate 2021-07-09 02:57:42 80 /min [facility] [place] [facility] Respiratory rate 2021-07-09 02:57:42 18 /min Univ ers[facility] [place] [facility] Oxygen saturation in 2021-07-09 02:57:42 99 /min University of Arterial blood by [facility] Pulse oximetry Branch BMI 2021-07-08 23:25:00 36.59 kg/m2 [facility] [place] [facility] Body temperature 2021-07-08 23:25:00 37.22 Jia Univ ers[facility] [place] [facility] Body weight 2021-07-08 23:25:00 115.667 kg [facility] [place] [facility] Body temperature 2020-07-17 23:32:00 38.06 Jia [facility] [place] [facility] Systolic blood 2020-07-17 23:00:00 130 mm[Hg] Univer sity of pressure [place] [facility] Diastolic blood 2020-07-17 23:00:00 86 mm[Hg] Unive rsity of pressure [place] [facility] Heart rate 2020-07-17 23:00:00 84 /min [facility] [place] [facility] Respiratory rate 2020-07-17 23:00:00 18 /min Univ ers[facility] [place] [facility] Oxygen saturation in 2020-07-17 23:00:00 98 /min University of Arterial blood by [facility] Pulse oximetry Branch Body height 2020-07-17 21:31:00 177.8 cm [facility] [place] [facility] Body weight 2020-07-17 21:31:00 115.667 kg [facility] [place] [facility] BMI 2020-07-17 21:31:00 36.59 kg/m2 [facility] [place] [facility] Body temperature 2020-07-17 23:32:00 38.06 Jia Univ [facility] [place] [facility] Systolic blood 2020-07-17 23:00:00 130 mm[Hg] Univer sity of pressure [place] [facility] Diastolic blood 2020-07-17 23:00:00 86 mm[Hg] Unive rsity of pressure [place] [facility] Heart rate 2020-07-17 23:00:00 84 /min [facility] [place] [facility] Respiratory rate 2020-07-17 23:00:00 18 /min Univ ersity [facility] [place] [facility] Oxygen saturation in 2020-07-17 23:00:00 98 /min University of Arterial blood by [facility] Pulse oximetry Branch Body height 2020-07-17 21:31:[address] [facility] Body weight 2020-07-17 21:31:[address] [facility] BMI 2020-07-17 21:31:00 36.59 kg/m2 [facility] Procedures Procedure Date / Time Performing Clinician Source Performed URINALYSIS 2021-07-09 01:42:00 Bennett Hutchins [facility]ly [facility] NOTICE OF PRIVACY 2021-07-08 23:03:02 [facility] CONSENT/REFUSAL FOR 2021-07-08 23:01:18 [facility]igned, [facility]AT[facility] Name [facility] RAPID STREP SCREEN FOR 2020-07-17 21:53:00 [facility] CONSENT/REFUSAL FOR 2020-07-17 21:18:19 Doctor [facility]assigned, [facility] Name [facility] NOTICE OF PRIVACY 2020-07-17 21:18:03 Doctor [facility]assigned, [facility] Name [facility] VACCINATIONS - 2020-03-17 05:01:00 Doctor Unassigned, No Univer [facility] CONSENTS, ELIGIBILITY, Name Medical [place] HISTORY Encounters Start End Encounter Admission Attending Care Care Encounter Source Date/Time Date/Time Type Type Clinicians Facility Department ID 2021-07-08 2021-07-08 Emergency Orly [facility] [id number] [facility] 18:52:00 22:00:00 Bennett Brown [id number] i ty Walter [id number] [facility] [id number] [facility] 084 Branch 2021-07-08 2021-07-08 Emergency X ORLY TXJUANITO ERT [id number] Univers 18:01:00 18:01:00 BENNETT gaffney [facility] 2020-07-17 2020-07-17 Emergency Oseas TXJUANITO [id number] 16:37:00 18:49:00 Monika Brown [id number] [place] 4.2.7.2.686 [place] [id number] 2020-07-17 2020-07-17 Emergency Oseas, [facility] [id number] Univers 16:37:00 18:49:00 Monika Juarez Brown [id number] ity of [place] 4[place]2.7.2.686 [place] [id number] [address] 2020-07-17 2020-07-17 Emergency X [facility] ERT [id number] Univers 16:19:00 16:19:00 ity of [facility] 2020-07-17 2020-07-17 Orders Doctor AMELIA 1.2.840.114 [id number] 00:00:00 00:00:00 Only Unassigned, ELVIRA [id number] [facility] 4.2.7.2.686 [id number] 2020-07-17 2020-07-17 Orders Doctor CISNEROS 1.2.840.114 [id number] Univers 00:00:00 00:00:00 Only Unassigned, ELVIRA [id number] ity of [facility] 4.2.7.2.686 [place] [id number] [address] 2020-03-17 2020-03-17 Orders Doctor AMELIA 1.2.840.114 [id number] 00:00:00 00:00:00 Only Unassigned, ELVIRA [id number] [facility] 4.2.7.2.686 [id number] 2020-03-17 2020-03-17 Orders Doctor CISNEROS [id number] Univers 00:00:00 00:00:00 Only Unassigned, ELVIRA [id number] ity of [facility] [id number] [place] [id number] [address] Results Test Description Test Time Test Comments Results Result Comments Source URINALYSIS 2021-07-09 02:17:23 Test Item Value Reference Range Interpretation Comme nts APPEARANCE (test code = Cloudy Clear A 2865295197) COLOR (test code = 9294329919) Yellow Yellow PH (test code = 7353302563) 4.8-8.0 SP GRAVITY (test code = 1.003-1.030 7344014559) GLU U QUAL (test code = Normal Normal 0213062454) BLOOD (test code = 0979496990) Negative Negative KETONES (test code = 5876165085) Negative Negative PROTEIN (test code = 2887-8) Negative Negative UROBILIN (test code = 4.0 mg/dL Normal A 8831371973) BILIRUBIN (test code = Negative Negative 0732605002) NITRITE (test code = 5159800326) Negative Negative LEUK MATEO (test code = 250/uL Negative A 6043955257) RBC/HPF (test code = 9910798728) See_Comment H [Automated message] The system which ge nerated this result transmit cole reference range: 0 - 3 HP F. The reference range was not used to interpret th is result as normal/abnormal . WBC/HPF (test code = 9799882105) >182 See_Comment H [Automated message] The system which ge nerated this result transmit cole reference range: 0 - 5 HP F. The reference range was not used to interpret th is result as normal/abnormal . BACTERIA (test code = Moderate Negative A 0760063519) MUCOUS (test code = 6929099495) Slight Negative LPF A AMORPHOUS (test code = Rare Rare HPF 9152851545) WBC CLUMPS (test code = See_Comment H [Au tomated message] The 3867805025) system which ge nerated this result transmit cole reference range: <=1 HPF. The reference range was not used to interpret th is result as normal/abnormal . Lab Interpretation (test code = Abnormal 62709-3) [facility] [id number] 02:17:23 Test Item Value Reference Range Interpretation Comments APPEARANCE (test code = Cloudy Clear A 4544092983) COLOR (test code = Yellow Yellow 0123611853) PH (test code = 4.8-8.0 6011136918) SP GRAVITY (test code = 1.003-1.030 0327933347) GLU U QUAL (test code = Normal Normal 4379814693) BLOOD (test code = Negative Negative 3656056551) KETONES (test code = Negative Negative 5828667210) PROTEIN (test code = Negative Negative 2887-8) UROBILIN (test code = 4.0 mg/dL Normal A 8268327663) BILIRUBIN (test code = Negative Negative 1588266036) NITRITE (test code = Negative Negative 6400717648) LEUK MATEO (test code = 250/uL Negative A 1205631381) RBC/HPF (test code = See_Comment H [Autom ated message] 5134731149) The system [employer] generated this result transmit cole reference range : 0 - 3 HPF. The refe rence range was not u sed to interpret th is result as normal/abnormal . WBC/HPF (test code = >182 See_Comment H [Autom ated message] [id number]) The system [employer] generated this result transmit cole reference range : 0 - 5 HPF. The refe rence range was not u sed to interpret th is result as normal/abnormal . BACTERIA (test code = Moderate Negative A 8938520261) MUCOUS (test code = Slight Negative LPF A 4032360531) AMORPHOUS (test code = Rare Rare HPF [id number]) WBC CLUMPS (test code = See_Comment H [Au tomated message] [id number]) The system [employer] generated this result transmit cole reference range : <=1 HPF. The refere nce range was not u sed to interpret th is result as normal/abnormal . Lab Interpretation (test Abnormal code = 39964-5) [facility] [id number] 22:52:00 Test Item Value Reference Range Interpretation Comments Streptococcus pyogenes (group A) Positive Negative A antigen (test code = 35766-0) Lab Interpretation (test code = Abnormal 03008-7) [facility]
--- NOTE | 2021-11-08 11:00 | RAD REPORT ---
EXAM DESCRIPTION: RAD - Hand Right 3 View - 11/08/2021 10:51 am CLINICAL HISTORY: PAIN COMPARISON: Hand Right 3 View dated 03/02/2021 FINDINGS: No acute fracture is identifiable. The fracture at the base of the fifth metacarpal seen o n the February study shows full bony union on today's examination. No periosteal reaction. No joint spac e abnormality seen. No foreign body or significant soft tissue abnormality. IMPRESSION: No acute fracture. No acute bone or joint finding seen. 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
--- NOTE | 2021-11-08 11:04 | ER ---
Nurse's Notes [facility] Name: Greg Dukes Age: 26 yrs Sex: Male : 1995 Arrival Date: 11/08/2021 Time: 09:50 Bed Waiting Private MD: Diagnosis: Pain in right hand Presentation: 11/08 10:24 Chief complaint: Patient states: right hand pain. Patient reports having a recent break ap3 in the right hand. Patient states that two weeks ago, he punched a punching game, and has had pain since. Coronavirus screen: At this time, the client does not indicate any symptoms associated with coronavirus-19. Ebola Screen: Patient denies travel to an Ebola-affected area in the 21 days before illness onset. No symptoms or risks identified at this time. Initial Sepsis Screen: Does the patient meet any 2 criteria? Yes Does the patient have a suspected source of infection? No. Patient's initial sepsis screen is negative. Risk Assessment: Do you want to hurt yourself or someone else? Patient reports no desire to harm self or others. Onset of symptoms was October 25, 2021. 10:24 Method Of Arrival: Ambulatory ap3 10:24 Acuity: ALBERTO 4 ap3 Triage Assessment: 10:27 General: Appears in no apparent distress. comfortable, Behavior is calm, cooperative, ap3 appropriate for age. Pain: Complains of pain in right hand. Neuro: Level of Consciousness is awake, alert, obeys commands, Oriented to person, place, time, situation, Appropriate for age. Respiratory: Airway is patent Respiratory effort is even, unlabored. Historical: - Allergies: 10:26 No Known Allergies; ap3 - Home Meds: 10:26 None [Active]; ap3 - PMHx: 10:26 Asthma; ap3 - PSHx: 10:26 right hand; ap3 - Immunization history:: Client reports having NOT received the Covid vaccine. - Social history:: Smoking status: Patient reports the use of cigarette tobacco products, smokes one-half pack cigarettes per day. Screenin:27 Abuse screen: Denies threats or abuse. Nutritional screening: No deficits noted. ap3 Tuberculosis screening: No symptoms or risk factors identified. Fall Risk None identified. Vital Signs: 10:24 Pulse 73; Resp 17; Temp 97.8(TE); Pulse Ox 99% on R/A; Weight 115.67 kg; Height 5 ft. ap3 11 in. (180.34 cm); Pain 8/10; 10:24 Body Mass Index 35.56 (115.67 kg, 180.34 cm) ap3 ED Course: 09:50 Patient arrived in ED. ds1 10:25 Fatuma Estevez FNP-C is [facility]. kb 10:25 Dionte Bruno MD is Attending Physician. kb 10:26 Triage completed. ap3 10:27 Arm band placed on left wrist. ap3 10:27 Patient has correct armband on for positive identification. Pulse ox on. NIBP on. ap3 10:49 Hand Right 3 View XRAY In Process Unspecified. EDMS 11:33 No provider procedures requiring assistance completed. Patient did not have IV access ap3 during this emergency room visit. Administered Medications: No medications were administered Outcome: 11:03 Discharge ordered by . kb 11:33 Discharged to home ambulatory. ap3 11:33 Condition: good 11:33 Discharge instructions given to patient, Instructed on discharge instructions, follow up and referral plans. Demonstrated understanding of instructions, follow-up care. 11:33 Patient left the ED. ap3 Signatures: Dispatcher [employer] EDMS Fatuma Estevez FNP-C FNP-Ckb Sanford, Demi ds1 Sun Horton, RN RN ap3 Corrections: (The following items were deleted from the chart) 10:27 10:26 Home Meds: Tylenol #3 Oral; ap3 ap3
--- NOTE | 2021-11-08 11:04 | EDPHYS ---
Physician Documentation [facility] Name: Greg Dukes Age: 26 yrs Sex: Male : 1995 Arrival Date: 11/08/2021 Time: 09:50 Bed Waiting Private MD: KENNA Physician Dionte Bruno HPI: 11/08 10:48 This 26 yrs old Black Male presents to ER via Ambulatory with complaints of Hand Pain. kb 10:48 The patient or guardian reports pain. The complaints affect the dorsum of right hand. kb Context: The problem was sustained at home, resulted from using own fist to strike, punching bag. Onset: The symptoms/episode began/occurred 2 week(s) ago. Modifying factors: The symptoms are alleviated by nothing, the symptoms are aggravated by nothing. Associated signs and symptoms: The patient has no apparent associated signs or symptoms. Severity of symptoms: At their worst the symptoms were moderate, in the emergency department the symptoms are unchanged. The patient has not experienced similar symptoms in the past. The patient has not recently seen a physician. Pt reports he punched a bag 2 weeks ago and has had pain to middle knuckle since then. Reports sometimes swells. Historical: - Allergies: 10:26 No Known Allergies; ap3 - Home Meds: 10:26 None [Active]; ap3 - PMHx: 10:26 Asthma; ap3 - PSHx: 10:26 right hand; ap3 - Immunization history:: Client reports having NOT received the Covid vaccine. - Social history:: Smoking status: Patient reports the use of cigarette tobacco products, smokes one-half pack cigarettes per day. ROS: 10:51 Constitutional: Negative for fever, chills, and weight loss. kb 10:51 MS/extremity: Positive for pain, of the dorsum of right hand. 10:51 All other systems are negative. Exam: 10:51 Constitutional: This is a well developed, well nourished patient who is awake, alert, kb and in no acute distress. Head/Face: Normocephalic, atraumatic. ENT: Moist Mucous membranes Respiratory: Respirations even and unlabored. No increased work of breathing. Talking in full sentences Skin: Warm, dry with normal turgor. Normal color. Neuro: Awake and alert, GCS 15, oriented to person, place, time, and situation. Moves all extremities. Normal gait. Psych: Awake, alert, with orientation to person, place and time. Behavior, mood, and affect are within normal limits. 10:51 Musculoskeletal/extremity: Extremities: grossly normal except: noted in the dorsum of right hand: pain, tenderness, ROM: intact in all extremities, Circulation is intact in all extremities. Sensation intact. Vital Signs: 10:24 Pulse 73; Resp 17; Temp 97.8(TE); Pulse Ox 99% on R/A; Weight 115.67 kg; Height 5 ft. ap3 11 in. (180.34 cm); Pain 8/10; 10:24 Body Mass Index 35.56 (115.67 kg, 180.34 cm) ap3 MDM: 10:25 Patient medically screened. kb 10:52 Data reviewed: vital signs, nurses notes. Data interpreted: Pulse oximetry: on room air kb is 99 %. Interpretation: normal. 11:03 Counseling: I had a detailed discussion with the patient and/or guardian regarding: the kb historical points, exam findings, and any diagnostic results supporting the discharge/admit diagnosis, radiology results, the need for outpatient follow up, a family practitioner, to return to the emergency department if symptoms worsen or persist or if there are any questions or concerns that arise at home. 11/08 10:25 Order name: Hand Right 3 View XRAY; Complete Time: 11:03 kb Administered Medications: No medications were administered Disposition Summary: 11/08/21 11:03 Discharge Ordered Location: Home kb Condition: Stable kb Diagnosis - Pain in right hand kb Followup: kb - With: Emergency Department - When: As needed - Reason: Worsening of condition Followup: kb - With: Private Physician - When: 2 - 3 days - Reason: Recheck today's complaints, Continuance of care, Re-evaluation by your physician Discharge Instructions: - Discharge Summary Sheet kb - Hand Pain kb Forms: - Medication Reconciliation Form kb - Thank You Letter kb - Antibiotic Education kb - Prescription Opioid Use kb - Work release form ap3 Addendum: 11/09/2021 12:50 Co-signature as Attending Physician, Dionte Bruno MD I agree with the assessment and c reyes plan of care. Signatures: Dispatcher [employer] EDFatuma De La Rosa, TRAFFIC SIGN SUPERVISOR-C TRAFFIC SIGN SUPERVISOR-Ckb DamionDionte MD MD cha Prokisch, Amanda, RN RN ap3 Corrections: (The following items were deleted from the chart) 11/08 10:27 10:26 [place] Meds: Tylenol #3 Oral; ap3 ap3
[2021-11-08 11:42] VITALS: TEMP 97.8; O2SAT 99
== END 2021-11-08 11:33 | disposition home or self-care (01) ==
LOC: ER 09:49
DX: M79.641 Pain in right hand (principal); W21.89XA Striking against or struck by other sports equipment, initial encounter; Y93.71 Activity, boxing; Y92.009 Unspecified place in unspecified non-institutional (private) residence as the place of occurrence of the external cause; F17.210 Nicotine dependence, cigarettes, uncomplicated
CPT/HCPCS: 99283

== ENCOUNTER 2022-03-10 01:09 | Emergency (ER) | payer BC ==
--- OUTSIDE RECORDS SUMMARY | 2022-03-10 01:12 | XMS REPORT | Continuity of Care Document ---
:1995 Author Organization [facility] t Address [address] [place] [address] Care Team Providers Name Role Phone PCP, DOES NOT HAVE A Primary Care Physician Unavailable Leigh Fisher Attending Clinician Leigh HUTCHINS Attending [...] rs active active ity of problems problems [facility] Allergies, Adverse Reactions, Alerts Allergy Allergy Status Severity Reaction(s) Onset Inactive Treating Comm ents Source Name Type Date Date Clinician Other Propensi Active Swelling Horses Univer s Mallory-3s ty to 11-25 ity of adverse 00:00: [place] reaction 00 [facility] s Phil Campbell OTHER DRUG Active Swelling 0 Univers OMEGA-3S INGREDI 1-13 ity of 00:00: [place] 00 [facility] Social History Social Habit Start Date Stop Date Quantity Comments Source Exposure to Not sure [facility] SARS-CoV-2 (event) Medica l Branch Sex Assigned At [birth year] [facility] 00:00:00 00:00:00 [facility] Smoking Status Start Date Stop Date Source Unknown if ever smoked [facility] Medications Ordered Filled Start Stop Current Ordering Indication Dosage Frequency Signature Comments Components Source Medication Medication Date Date Medication? Clinician (SIG) Name Name sharadi 2020- No 1000mg 1,000 mg, Univers n 07-09 Oral, ity of (ZITHROMAX) 02:15: 01:46 [place] :[place] dose, [facility] 1,000 mg 07/08/21 at [facility] 2115, MED
Re ason for Anti-Infec tive: Empiric Therapy for Suspected Infection< br>Empiric Therapy Site: Skin / Soft tissue
Duration of therapy: 72 hours cefTRIAXone 2020- No 500mg 500 mg, U nivers (ROCEPHIN) 07-09 Intramuscu it y of injection 02:15: 01:47 lar, ONCE, [place] 500 mg 00 :00 1 dose, Medical [facility] Branch 07/08/21 at 5, MED
Re ason for Anti-Infec tive: Empiric Therapy for Suspected Infection< br>Empiric Therapy Site: Pelvic
Duration of therapy: 72 hours azithromyci 2020- No 1000mg 1,000 mg, Univers n 07-09 Oral, ity of (ZITHROMAX) 02:15: 01:46 [place]CE[place] 1 [place] :[place] dose, [facility] 1,000 mg 07/08/21 at [facility] 5, MED
Re ason for Anti-Infec tive: Empiric [...]
Duration of therapy: 72 hours phenazopyri Yes [id number] 200mg Take 1 Univers dine 200 mg 07-08 tablet by ity of tablet 00:00: mouth 3 [place] 00 (three) Medical times Phil Campbell daily as needed for Pain. phenazopyri Yes [id number] 200mg Take 1 Univers dine 200 mg 8- tablet by ity of tablet 00:00: mouth 3 [place] (three) Medical times Phil Campbell daily as needed for Pain. cefdinir 2020- No [id number] 300mg Take 1 U nivers 300 mg 07-08 capsule by ity of capsule 00:00: 04:59 mouth 2 [place] 00 :00 (two) Medical times Phil Campbell daily for 10 days. cefdinir 2020- No [id number] 300mg Take 1 U nivers 300 mg 07-08 capsule by ity of capsule 00:00: 04:59 mouth 2 [place] 00 : (two) Medical times Phil Campbell daily for 10 days. penicillin 2019- No [...] mg 07/17/20 at Branch 1700, MED penicillin 2020- No [id number] 500mg Take 1 Univers v potassium 07-17 tablet by it y of 500 mg 00:00: 00:00 mouth 2 [place] tablet 00 :00 (two) Medical times Phil Campbell daily for 10 days. azithromyci Yes 250mg Take 1 Tab Univers n 1-13 by mouth ity of (ZITHROMAX) 00:00[place] 250 mg 00 Medical tablet Branch benzonatate Yes 100mg Take 1 Cap Univers (TESSALON [...] Meningococcal 2009 Completed University of Vaccine 00:00:00 [facility] TDAP 2009 Completed [facility] 00:00:00 [facility] Meningococcal 2009 Completed University of Vaccine 00:00:00 [facility] TDAP 2009 Completed University of 00:00:00 [facility] Meningococcal 2009 Completed University of Vaccine 00:00:00 [facility] TDAP 2009 Completed University of 00:00:00 [facility] Meningococcal 2009 Completed University of Vaccine 00:00:00 [facility] TDAP 2009 Completed University of 00:00:00 [facility] Meningococcal 2009 Completed University of Vaccine 00:00:00 [facility] Tdap 2009 Completed University of 00:00:00 [facility] Varicella 2001 Completed University of (varivax)(chicken 00:00:00 [...] Branch MMR 2001-06-14 Completed University of 00:00:00 [facility] Polio (IPV/OPV) 2001-06-14 Completed Universit y of 00:00:00 [facility] DTAP 2001-06-14 Completed University of 00:00:00 [facility] MMR 2001-06-14 Completed University of 00:00:00 [facility] Polio (IPV/OPV) 2001-06-14 Completed Universit y of 00:00:00 [facility] DTAP 2001-06-14 Completed University of 00:00:00 [facility] MMR 2001-06-14 Completed University of 00:00:00 [facility] Polio (IPV/OPV) 2001-06-14 Completed Universit y of 00:00:00 [facility] DTAP 2001-06-14 Completed University of 00:00:00 [facility] MMR 2001-06-14 Completed University of 00:00:00 [facility] Polio (IPV/OPV) 2001-06-14 Completed Universit y of 00:00:00 [facility] DTAP 2001-06-14 Completed University of 00:00:00 [facility] MMR 2001-06-14 Completed University of 00:00:00 [facility] Polio (IPV/OPV) 2001-06-14 Completed Universit y of 00:00:00 [facility] DTAP 2001-06-14 Completed University of 00:00:00 [facility] MMR 2000-06-29 Completed University of 00:00:00 [facility] Polio (IPV/OPV) 2000-06-29 Completed Universit y of 00:00:00 [facility] Varicella 2000-06-29 Completed University of (varivax)(chicken 00:00:00 [place] M edical pox) Branch DTAP 2000-06-29 Completed University of 00:00:00 [facility] HIB 4 Dose Schedule 2000-06-29 Completed Unive rsity of 00:00:00 [facility] MMR 2000-06-29 Completed University of 00:00:00 [facility] Polio (IPV/OPV) 2000-06-29 Completed Universit y of 00:00:00 [facility] Varicella 2000-06-29 Completed University of (varivax)(chicken 00:00:00 [facility] edical pox) Branch DTAP 2000-06-29 Completed University of 00:00:00 [facility] HIB 4 Dose Schedule 2000-06-29 Completed Unive rsity of 00:00:00 [facility] MMR 2000-06-29 Completed University of 00:00:00 [facility] Polio (IPV/OPV) 2000-06-29 Completed Universit y of 00:00:00 [facility] Varicella 2000-06-29 Completed University of (varivax)(chicken 00:00:00 [place] M edical pox) Branch DTAP 2000-06-29 Completed University of 00:00:00 [facility] HIB 4 Dose Schedule 2000-06-29 Completed Unive rsity of 00:00:00 [facility] MMR 2000-06-29 Completed University of 00:00:00 [facility] Polio (IPV/OPV) 2000-06-29 Completed Universit y of 00:00:00 [facility] Varicella 2000-06-29 Completed University of (varivax)(chicken 00:00:00 [place] [facility] edical pox) Branch DTAP 2000-06-29 Completed University of 00:00:00 [facility] HIB 4 Dose Schedule 2000-06-29 Completed Unive rsity of 00:00:00 [facility] MMR 2000-06-29 Completed University of 00:00:00 [facility] Polio (IPV/OPV) 2000-06-29 Completed Universit y of 00:00:00 [facility] Varicella 2000-06-29 Completed University of (varivax)(chicken 00:00:00 [place] M edical pox) Branch DTAP 2000-06-29 Completed University of 00:00:00 [facility] HIB 4 Dose Schedule 2000-06-29 Completed Unive rsity of 00:00:00 [facility] Hep B, Adol or Pedi 1998-01-13 Completed Unive rsity of Dosage 00:00:00 [facility] DTAP 1998-01-13 Completed University of 00:00:00 [facility] HIB 4 Dose Schedule 1998-01-13 Completed Unive rsity of 00:00:00 [facility] Hep B, Adol or Pedi 1998-01-13 Completed Unive rsity of Dosage 00:00:00 [facility] DTAP 1998-01-13 Completed University of 00:00:00 [facility] HIB 4 Dose Schedule 1998-01-13 Completed Unive rsity of 00:00:00 [facility] Hep B, Adol or Pedi 1998-01-13 Completed Unive rsity of Dosage 00:00:00 [facility] DTAP 1998-01-13 Completed University of 00:00:00 [facility] HIB 4 Dose Schedule 1998-01-13 Completed Unive rsity of 00:00:00 [facility] Hep B, Adol or Pedi 1998-01-13 Completed Unive rsity of Dosage 00:00:00 [facility] DTAP 1998-01-13 Completed University of 00:00:00 [facility] HIB 4 Dose Schedule 1998-01-13 Completed Unive rsity of 00:00:00 [facility] Hep B, Adol or Pedi 1998-01-13 Completed Unive rsity of Dosage 00:00:00 [facility] DTAP 1998-01-13 Completed University of 00:00:00 [facility] HIB 4 Dose Schedule 1998-01-13 Completed Unive rsity of 00:00:00 [facility] Polio (IPV/OPV) 1997 Completed Universit y of 00:00:00 [facility] DTAP 1997 Completed University of 00:00:00 [place] [facility] HIB 4 Dose Schedule 1997 Completed Unive rsity of 00:00:00 [place] [facility] Polio (IPV/OPV) 1997 Completed Universit y of 00:00:00 [place] [facility] DTAP 1997 Completed University of 00:00:00 [place] [facility] HIB 4 Dose Schedule 1997 Completed Unive rsity of 00:00:00 [place] [facility] Polio (IPV/OPV) 1997 Completed Universit y of 00:00:00 [place] [facility] DTAP 1997 Completed University of 00:00:00 [place] [facility] HIB 4 Dose Schedule 1997 Completed Unive rsity of 00:00:00 [place] [facility] Polio (IPV/OPV) 1997 Completed Universit y of 00:00:00 [place] [facility] DTAP 1997 Completed University of 00:00:00 [facility] HIB 4 Dose Schedule 1997 Completed Unive rsity of 00:00:00 [place] [facility] Polio (IPV/OPV) 1997 Completed Universit y of 00:00:00 [place] [facility] DTAP 1997 Completed University of 00:00:00 [place] [facility] HIB 4 Dose Schedule 1997 Completed Unive rsity of 00:00:00 [facility] Branch Hep B, Adol or Pedi 1997 Completed Unive rsity of Dosage 00:00:00 [facility] Branch Polio (IPV/OPV) 1997 Completed Universit y of 00:00:00 [place] [facility] DTAP 1997 Completed University of 00:00:00 [place] [facility] HIB 4 Dose Schedule 1997 Completed Unive rsity of 00:00:00 [place] [facility] Hep B, Adol or Pedi 1997 Completed Unive rsity of Dosage 00:00:00 [place] [facility] Polio (IPV/OPV) 1997 Completed Universit y of 00:00:00 [place] [facility] DTAP 1997 Completed University of 00:00:00 [place] [facility] HIB 4 Dose Schedule 1997 Completed Unive rsity of 00:00:00 [place] [facility] Hep B, Adol or Pedi 1997 Completed Unive rsity of Dosage 00:00:00 [facility] Polio (IPV/OPV) 1997 Completed Universit y of 00:00:00 [facility] DTAP 1997 Completed University of 00:00:00 [facility] HIB 4 Dose Schedule 1997 Completed Unive rsity of 00:00:00 [facility] Hep B, Adol or Pedi 1997 Completed Unive rsity of Dosage 00:00:00 [facility] Polio (IPV/OPV) 1997 Completed Universit y of 00:00:00 [facility] Branch DTAP 1997 Completed University of 00:00:00 [facility] HIB 4 Dose Schedule 1997 Completed Unive rsity of 00:00:00 [facility] Hep B, Adol or Pedi 1997 Completed Unive rsity of Dosage 00:00:00 [facility] Polio (IPV/OPV) 1997 Completed Universit y of 00:00:00 [facility] DTAP 1997 Completed University of 00:00:00 [facility] HIB 4 Dose Schedule 1997 Completed Unive rsity of 00:00:00 [facility] Branch Hep B, Adol or Pedi 1997 Completed Unive rsity of Dosage 00:00:00 [facility] Hep B, Adol or Pedi 1997 Completed Unive rsity of Dosage 00:00:00 [facility] Hep B, Adol or Pedi 1997 Completed Unive rsity of Dosage 00:00:00 [facility] Branch Hep B, Adol or Pedi 1997 Completed Unive rsity of Dosage 00:00:00 [facility] Branch Hep B, Adol or Pedi 1997 Completed Unive rsity of Dosage 00:00:00 [facility] Vital Signs Vital Name Observation Time Observation Value Comments Source Systolic blood 2021-07-09 02:57:42 129 mm[Hg] Univer sity of pressure [facility] Diastolic blood 2021-07-09 02:57:42 84 mm[Hg] Unive rsity of pressure [facility] Heart rate 2021-07-09 02:57:42 80 /min Universi ty [facility] [place] [facility] Respiratory rate 2021-07-09 02:57:42 18 /min Univ ers[facility] [place] [facility] Oxygen saturation in 2021-07-09 02:57:42 99 /min University of Arterial blood by [facility] Pulse oximetry Branch BMI 2021-07-08 23:25:00 36.59 kg/m2 [facility] [place] [facility] Body temperature 2021-07-08 23:25:00 37.22 Jia Univ ers[facility] [place] [facility] Body weight 2021-07-08 23:25:00 115.667 kg [facility] [place] [facility] Body temperature 2020-07-17 23:32:00 38.06 Jia Univ [facility] [place] [facility] Systolic blood 2020-07-17 23:00:00 130 mm[Hg] Univer sity of pressure [place] [facility] Diastolic blood 2020-07-17 23:00:00 86 mm[Hg] Unive rsity of pressure [place] [facility] Heart rate 2020-07-17 23:00:00 84 /min [facility]i [facility] [place] [facility] Respiratory rate 2020-07-17 23:00:00 18 /min Univ ers[facility] [place] [facility] Oxygen saturation in 2020-07-17 23:00:00 98 /min University of Arterial blood by [facility] Pulse oximetry Branch Body height 2020-07-17 21:31:00 177.8 cm [facility] [place] [facility] Body weight 2020-07-17 21:31:00 115.667 kg [facility] [place] [facility] BMI 2020-07-17 21:31:00 36.59 kg/m2 [facility] [place] [facility] Body temperature 2020-07-17 23:32:00 38.06 Jia Univ [facility] [place] [facility] Systolic blood 2020-07-17 23:00:00 130 mm[Hg] Univer sity of pressure [place] [facility] Diastolic blood 2020-07-17 23:00:00 86 mm[Hg] Unive rsity of pressure [place] [facility] Heart rate 2020-07-17 23:00:00 84 /min [facility]i ty [facility] [place] [facility] Respiratory rate 2020-07-17 23:00:00 18 /min Univ ersity [facility] [place] [facility] Oxygen saturation in 2020-07-17 23:00:00 98 /min University of Arterial blood by [facility] snehal Pulse oximetry Branch Body height 2020-07-17 21:31:00 177.8 cm [facility] Body weight 2020-07-17 21:31:00 115.667 kg [facility] BMI 2020-07-17 21:31:00 36.59 kg/m2 [facility] Procedures Procedure Date / Time Performing Clinician Source Performed URINALYSIS 2021-07-09 01:42:00 Bennett Hutchins [facility] NOTICE OF PRIVACY 2021-07-08 23:03:02 [facility] Branch CONSENT/REFUSAL FOR 2021-07-08 23:01:18 Doctor Unassigned, No Un iversity [facility] DIAGNOSIS AND TREATMENT Name [facility] RAPID STREP SCREEN FOR 2020-07-17 21:53:00 [facility] CONSENT/REFUSAL FOR 2020-07-17 21:18:19 [facility] Name [facility] NOTICE OF PRIVACY 2020-07-17 21:18:03 [facility]assigned, [facility] VACCINATIONS - 2020-03-17 05:01:00 Doctor Unassigned, No Univer [facility] CONSENTS, ELIGIBILITY, Name Medical [facility] HISTORY Encounters Start End Encounter Admission Attending Care Care Encounter Source Date/Time Date/Time Type Type Clinicians Facility Department ID 2021-07-08 2021-07-08 Emergency Orly [facility] [id number] [facility] 18:52:00 22:00:00 Bennett Brown [id number] i ty [facility] [id number] [facility] [id number] [facility] snehal 084 Branch 2021-07-08 2021-07-08 Emergency X ORLY INJUANITO ERT [id number] Univers 18:52:00 22:00:00 BENNETT gaffney [facility] 2020-07-17 2020-07-17 Emergency Oseas [facility] [id number] 16:37:00 18:49:00 Monika Brown [id number] [place] 4.2.7.2.686 [place] [id number] 2020-07-17 2020-07-17 Emergency Oseas, [facility] [id number] Univers 16:37:00 18:49:00 Monika Brown [id number] ity of [place] 4[place]2.686 [place] [id number] [address] 2020-07-17 2020-07-17 Emergency X [facility] ERT [id number] Univers 16:19:00 16:19:00 ity of [facility] 2020-07-17 2020-07-17 Orders Doctor CISNEROS 1.2.840.114 [id number] 00:00:00 00:00:00 Only Unassigned, ELVIRA [id number] [facility] 4.2.7.2.686 [id number] 2020-07-17 2020-07-17 Orders Doctor CISNEROS 1.2.840.114 [id number] Univers 00:00:00 00:00:00 Only Unassigned, ELVIRA [id number] ity of [facility] 4.2.7.2.686 [place] [id number] [address] 2020-03-17 2020-03-17 Orders Doctor CISNEROS 1.2.840.114 [id number] 00:00:00 00:00:00 Only Unassigned, ELVIRA [id number] [facility] 4.2.7.2.686 [id number] 2020-03-17 2020-03-17 Orders Doctor CISNEROS 1.2.840.114 [id number] Univers 00:00:00 00:00:00 Only Unassigned, ELVIRA [id number] ity of [facility] [id number] [place] as [id number] [address] Results Test Description Test Time Test Comments Results Result Comments Source URINALYSIS 2021-07-09 02:17:23 Test Item Value Reference Range Interpretation Comme nts APPEARANCE (test code = Cloudy Clear A 3252807190) COLOR (test code = 6780149733) Yellow Yellow PH (test code = 7885269171) 4.8-8.0 SP GRAVITY (test code = 1.003-1.030 1907922673) GLU U QUAL (test code = Normal Normal 2934071905) BLOOD (test code = 0888231433) Negative Negative KETONES (test code = 7012296606) Negative Negative PROTEIN (test code = 2887-8) Negative Negative UROBILIN (test code = 4.0 mg/dL Normal A 7060571644) BILIRUBIN (test code = Negative Negative 4228477854) NITRITE (test code = 3269708691) Negative Negative LEUK MATEO (test code = 250/uL Negative A 5280696857) RBC/HPF (test code = 5554215029) See_Comment H [Automated message] The system which ge nerated this result transmit cole reference range: 0 - 3 HP F. The reference range was not used to interpret th is result as normal/abnormal . WBC/HPF (test code = 4780403146) >182 See_Comment H [Automated message] The system which ge nerated this result transmit cole reference range: 0 - 5 HP F. The reference range was not used to interpret th is result as normal/abnormal . BACTERIA (test code = Moderate Negative A 9244861994) MUCOUS (test code = 8427110077) Slight Negative LPF A AMORPHOUS (test code = Rare Rare HPF 6463766313) WBC CLUMPS (test code = See_Comment H [Au tomated message] The 6601632557) system which ge nerated this result transmit cole reference range: <=1 HPF. The reference range was not used to interpret th is result as normal/abnormal . Lab Interpretation (test code = Abnormal 22231-2) [facility] [id number] 02:17:23 Test Item Value Reference Range Interpretation Comments APPEARANCE (test code = Cloudy Clear A 9360392943) COLOR (test code = Yellow Yellow 1905816814) PH (test code = 4.8-8.0 1373065568) SP GRAVITY (test code = 1.003-1.030 5105003708) GLU U QUAL (test code = Normal Normal 8667254857) BLOOD (test code = Negative Negative 8331807735) KETONES (test code = Negative Negative 1811055978) PROTEIN (test code = Negative Negative 2887-8) UROBILIN (test code = 4.0 mg/dL Normal A 6943680490) BILIRUBIN (test code = Negative Negative 4811839376) NITRITE (test code = Negative Negative 6706602853) LEUK MATEO (test code = 250/uL Negative A 3271142979) RBC/HPF (test code = See_Comment H [Autom ated message] 2003763855) The system [employer] generated this result transmit cole reference range : 0 - 3 HPF. The refe rence range was not u sed to interpret th is result as normal/abnormal . WBC/HPF (test code = >182 See_Comment H [Autom ated message] 2778903856) The system [employer] generated this result transmit cole reference range : 0 - 5 HPF. The refe rence range was not u sed to interpret th is result as normal/abnormal . BACTERIA (test code = Moderate Negative A 9524484256) MUCOUS (test code = Slight Negative LPF A 2170889345) AMORPHOUS (test code = Rare Rare HPF 6204608754) WBC CLUMPS (test code = See_Comment H [Au tomated message] 2350345346) The system [employer] generated this result transmit cole reference range : <=1 HPF. The refere nce range was not u sed to interpret th is result as normal/abnormal . Lab Interpretation (test Abnormal code = 13692-8) [facility] [id number] 22:52:00 Test Item Value Reference Range Interpretation Comments Streptococcus pyogenes (group A) Positive Negative A antigen (test code = 92820-2) Lab Interpretation (test code = Abnormal 20814-1) [facility]
[2022-03-10] MEDS ORDERED: NA CHLORIDE 0.9% 1,000 ML ONE (02:37)
[2022-03-10 03:26] LABS: Absolute Lymphocytes (CBC) 2.5 K/uL (0.7-4.9); Hematocrit 43.8 % (39.6-49.0)
[2022-03-10 03:38] LABS: ALT/SGPT 28 U/L (12-78); Albumin 3.6 g/dL (3.4-5.0); Alkaline Phosphatase 71 U/L (45-117); BUN Blood Urea Nitrogen 10 mg/dL (7-18); Bicarbonate 29 mmol/L (21-32); Bilirubin Total 0.3 mg/dL (0.2-1.0); Glucose Level 126 mg/dL (74-106); Lipase 834 U/L (73-393); Protein, Total 7.4 g/dL (6.4-8.2); Sodium Level 140 mmol/L (136-145); Troponin High Sensitivity 3.7 pg/mL (<58.9)
[2022-03-10 03:39] LABS: AST/SGOT 23 U/L (15-37); Bilirubin Direct < 0.1 mg/dL (0-0.2); Potassium 3.7 mmol/L (3.5-5.1)
--- NOTE | 2022-03-10 05:04 | EDPHYS ---
Physician Documentation [facility] Name: Greg Dukes Age: 26 yrs Sex: Male : 1995 Arrival Date: 03/10/2022 Time: 01:12 Bed 5 Private MD: ED Physician Dionte Bruno HPI: 03/10 05:00 This 26 yrs old Black Male presents to ER via Ambulatory with complaints of Dry mouth, kerline Excessive urination. 05:00 weakness, increased thirst. Onset: The symptoms/episode began/occurred 2 day(s) ago. kerline Severity of symptoms: At their worst the symptoms were mild in the emergency department the symptoms are unchanged. The patient has not experienced similar symptoms in the past. Historical: - Allergies: :35 No Known Allergies; tw5 - PMHx: :35 Asthma; - PSHx: :35 right hand; tw - Immunization history:: Flu vaccine is not up to date. - Social history:: Smoking status: Reported history of juuling and/or vaping. ROS: 05:00 Constitutional: Negative for fever, chills, and weight loss, Eyes: Negative for injury, kerline pain, redness, and discharge, ENT: Negative for injury, pain, and discharge, Neck: Negative for injury, pain, and swelling, Cardiovascular: Negative for chest pain, palpitations, and edema, Respiratory: Negative for shortness of breath, cough, wheezing, and pleuritic chest pain, Abdomen/GI: Negative for abdominal pain, nausea, vomiting, diarrhea, and constipation, Back: Negative for injury and pain, : Negative for injury, bleeding, discharge, and swelling, MS/Extremity: Negative for injury and deformity, Skin: Negative for injury, rash, and discoloration, Neuro: Negative for headache, weakness, numbness, tingling, and seizure, Psych: Negative for depression, anxiety, suicide ideation, homicidal ideation, and hallucinations, Allergy/Immunology: Negative for hives, rash, and allergies, Endocrine: Negative for neck swelling, polydipsia, polyuria, polyphagia, and marked weight changes, Hematologic/Lymphatic: Negative for swollen nodes, abnormal bleeding, and unusual bruising. Exam: 05:00 Constitutional: This is a well developed, well nourished patient who is awake, alert, kerline and in no acute distress. Head/Face: Normocephalic, atraumatic. Eyes: Pupils equal round and reactive to light, extra-ocular motions intact. Lids and lashes normal. Conjunctiva and sclera are non-icteric and not injected. Cornea within normal limits. Periorbital areas with no swelling, redness, or edema. ENT: Nares patent. No nasal discharge, no septal abnormalities noted. Tympanic membranes are normal and external auditory canals are clear. Oropharynx with no redness, swelling, or masses, exudates, or evidence of obstruction, uvula midline. Mucous membranes moist. Neck: Trachea midline, no thyromegaly or masses palpated, and no cervical lymphadenopathy. Supple, full range of motion without nuchal rigidity, or vertebral point tenderness. No Meningismus. Chest/axilla: Normal chest wall appearance and motion. Nontender with no deformity. No lesions are appreciated. Cardiovascular: Regular rate and rhythm with a normal S1 and S2. No gallops, murmurs, or rubs. Normal PMI, no JVD. No pulse deficits. Respiratory: Lungs have equal breath sounds bilaterally, clear to auscultation and percussion. No rales, rhonchi or wheezes noted. No increased work of breathing, no retractions or nasal flaring. Abdomen/GI: Soft, non-tender, with normal bowel sounds. No distension or tympany. No guarding or rebound. No evidence of tenderness throughout. Back: No spinal tenderness. No costovertebral tenderness. Full range of motion. Male : Normal genitalia with no discharge or lesions. Skin: Warm, dry with normal turgor. Normal color with no rashes, no lesions, and no evidence of cellulitis. MS/ Extremity: Pulses equal, no cyanosis. Neurovascular intact. Full, normal range of motion. Neuro: Awake and alert, GCS 15, oriented to person, place, time, and situation. Cranial nerves II-XII grossly intact. Motor strength 5/5 in all extremities. Sensory grossly intact. Cerebellar exam normal. Normal gait. Psych: Awake, alert, with orientation to person, place and time. Behavior, mood, and affect are within normal limits. 05:00 ECG was reviewed by the Attending Physician. Vital Signs: 01:33 BP 122 / 80; Pulse 78; Resp 18; Temp 97.9(TE); Pulse Ox 95% on R/A; Weight 115.67 kg; tw5 Height 5 ft. 11 in. (180.34 cm); Pain 0/10; 03:00 BP 111 / 73; Pulse 76; Resp 15; Pulse Ox 96% on R/A; oe 03:56 BP 120 / 69; Pulse 83; Resp 16; Pulse Ox 93% on R/A; oe 05:00 BP 137 / 95; Pulse 78; Resp 18 S; Pulse Ox 96% on R/A; al4 01:33 Body Mass Index 35.56 (115.67 kg, 180.34 cm) tw5 MDM: 02:26 Patient medically screened. [facility] 05:02 Data reviewed: vital signs, nurses notes, lab test result(s), EKG, radiologic studies, kerline plain films. Data interpreted: calender supervisor: rate is 83 beats/min, Pulse oximetry: on room air is 93 %. Test interpretation: by ED physician or midlevel provider: ECG, plain radiologic studies. Counseling: I had a detailed discussion with the patient and/or guardian regarding: the historical points, exam findings, and any diagnostic results supporting the discharge/admit diagnosis, lab results, radiology results, the need for further work-up and treatment in the hospital. 03/10 02:27 Order name: Basic Metabolic Panel; Complete Time: 04:14 kerline 03/10 02:27 Order name: CBC with Diff; Complete Time: 04:58 kerline 03/10 02:27 Order name: LFT's; Complete Time: 04:58 kerline 03/10 02:27 Order name: Magnesium; Complete Time: 04:58 kerline 03/10 02:27 Order name: Troponin HS; Complete Time: 04:58 kerline 03/10 02:27 Order name: Lipase; Complete Time: 04:58 kerline 03/10 02:19 Order name: Accucheck Blood Glucose; Complete Time: 03:47 cp 03/10 02:27 Order name: XRAY Chest (1 view) kerline 03/10 02:27 Order name: EKG; Complete Time: 02:28 kerline 03/10 02:27 Order name: Cardiac monitoring; Complete Time: 02:50 kerline 03/10 02:27 Order name: EKG - Nurse/Tech; Complete Time: 02:50 kerline 03/10 02:27 Order name: IV Saline Lock; Complete Time: 02:50 kerline 03/10 03:00 Order name: Glucose, Ancillary Testing; Complete Time: 04:58 EDIN 03/10 02:27 Order name: Labs collected and sent; Complete Time: :50 [facility] 03/10 02:27 Order name: O2 Per Protocol; Complete Time: :50 [facility] 03/10 02:27 Order name: O2 Sat Monitoring; Complete Time: 02:50 [facility] 03/10 02:27 Order name: Urine Dipstick-Ancillary (obtain specimen); Complete Time: :50 [facility] 03/10 02:27 Order name: Blood Glucose Level; Complete Time: :50 [facility] EC:00 Rate is 71 beats/min. Rhythm is regular. QRS [place] is Normal. VA interval is normal. QRS kerline interval is normal. QT interval is normal. No Q waves. T waves are Normal. Clinical impression: LVH and No evidence of ischemia. Administered Medications: : Drug: NS 0.9% 1000 ml Route: IV; Rate: 1 bolus; Site: right antecubital; as6 05:24 Follow up: Response: No adverse reaction; IV Status: Completed infusion; IV Intake: al4 1000ml Disposition Summary: 03/10/22 05:04 Discharge Ordered Location: Home kerline Problem: new kerline Symptoms: have improved kerline Condition: Stable kerline Diagnosis - Hyperglycemia, unspecified kerline Followup: kerline - With: Private Physician - When: 2 - 3 days - Reason: Recheck today's complaints, Continuance of care, Re-evaluation by your physician Followup: kerline - With: Remi Bernal, DO - When: 2 - 3 days - Reason: Recheck today's complaints, Re-evaluation by your physician Discharge Instructions: - Discharge Summary Sheet kerline - Hyperglycemia kerline - Hyperglycemic Hyperosmolar State kerline - Preventing Type 2 Diabetes Mellitus kerline Forms: - Medication Reconciliation Form kerline - Thank You Letter kerline - Antibiotic Education kerline - Prescription Opioid Use kerline - Work release form ds4 Signatures: Dispatcher [employer] Dionte Ramos MD MD cha Attema, Lee, LOCKER ATTENDANT-C LOCKER ATTENDANT-Cla1 Dionte Pimentel PA PA cp Wood, Tiffany tw5 Sam Pimentel RN RN as6 Crescencio Rivas al4
--- NOTE | 2022-03-10 05:04 | ER ---
Nurse's Notes [facility] Name: Greg Dukes Age: 26 yrs Sex: Male : 1995 Arrival Date: 03/10/2022 Time: 01:12 Bed 5 Private MD: Diagnosis: Hyperglycemia, unspecified Presentation: 03/10 01:33 Chief complaint: Patient states: "I think I am dehydrated but I don't know. My mouth tw5 for the past two weeks has been really dry even right after I drink something.". Coronavirus screen: Vaccine status: Patient reports being unvaccinated. Ebola Screen: Patient negative for fever greater than or equal to 101.5 degrees Fahrenheit, and additional compatible Ebola Virus Disease symptoms Patient denies exposure to infectious person. Patient denies travel to an Ebola-affected area in the 21 days before illness onset. Initial Sepsis Screen: Does the patient meet any 2 criteria? No. Patient's initial sepsis screen is negative. Does the patient have a suspected source of infection? No. Patient's initial sepsis screen is negative. Risk Assessment: Do you want to hurt yourself or someone else? Patient reports no desire to harm self or others. Onset of symptoms is unknown. 01:33 Method Of Arrival: Ambulatory tw5 01:33 Acuity: ALBERTO 3 tw5 Triage Assessment: 01:35 General: Appears in no apparent distress. Behavior is calm, cooperative, appropriate tw5 for age. Pain: Denies pain. 01:35 EENT: Reports dry mouth. Derm: Reports. tw5 Historical: - Allergies: 01:35 No Known Allergies; tw5 - PMHx: 01:35 Asthma; tw5 - PSHx: 01:35 right hand; tw5 - Immunization history:: Flu vaccine is not up to date. - Social history:: Smoking status: Reported history of juuling and/or vaping. Screenin:22 Abuse screen: Denies threats or abuse. Nutritional screening: No deficits noted. al4 Tuberculosis screening: No symptoms or risk factors identified. Fall Risk No fall in past 12 months (0 pts). IV access (20 points). Ambulatory Aid- None/Bed Rest/Nurse Assist (0 pts). Gait- Normal/Bed Rest/Wheelchair (0 pts) Mental Status- Oriented to own ability (0 pts). Total Hurley Fall Scale indicates No Risk (0-24 pts). Vital Signs: 01:33 BP 122 / 80; Pulse 78; Resp 18; Temp 97.9(TE); Pulse Ox 95% on R/A; Weight 115.67 kg; tw5 Height 5 ft. 11 in. (180.34 cm); Pain 0/10; 03:00 BP 111 / 73; Pulse 76; Resp 15; Pulse Ox 96% on R/A; oe 03:56 BP 120 / 69; Pulse 83; Resp 16; Pulse Ox 93% on R/A; oe 05:00 BP 137 / 95; Pulse 78; Resp 18 S; Pulse Ox 96% on R/A; al4 01:33 Body Mass Index 35.56 (115.67 kg, 180.34 cm) tw5 ED Course: 01:12 Patient arrived in ED. kz 01:35 Triage completed. tw5 01:35 Arm band placed on right wrist. tw5 01:36 Patient notified of wait time. tw5 02:14 Sam Pimentel, RN is Primary Nurse. as6 02:26 Dionte Bruno MD is Attending Physician. kerline 02:40 XRAY Chest (1 view) In Process Unspecified. EDMS 05:03 Remi Bernal DO is Referral Physician. kerline 05:22 Placed in gown. Side rails up X2. al4 05:22 No provider procedures requiring assistance completed. IV discontinued, intact, al4 bleeding controlled, No redness/swelling at site. Pressure dressing applied. Administered Medications: 02:50 Drug: NS 0.9% 1000 ml Route: IV; Rate: 1 bolus; Site: right antecubital; as6 05:24 Follow up: Response: No adverse reaction; IV Status: Completed infusion; IV Intake: al4 1000ml Intake: 05:24 IV: 1000ml; Total: 1000ml. al4 Outcome: 05:04 Discharge ordered by . kerline 05:22 Discharged to home ambulatory. al4 05:22 Condition: stable 05:22 Discharge instructions given to patient, Instructed on discharge instructions, follow up and referral plans. Demonstrated understanding of instructions, follow-up care. 05:24 Patient left the ED. al4 Signatures: Dispatcher [employer] EDMI Dionte Bruno MD MD cha Espinosa, Orlando oe Wood, Tiffany tw5 Sam Pimentel, ELIZABETH RN as6 Crescencio Rivas al4 Coty Myles kz
[2022-03-10 07:31] VITALS: TEMP 97.9
[2022-03-10 07:35] VITALS: BP 137/95; O2SAT 96
--- NOTE | 2022-03-10 12:16 | RAD REPORT ---
EXAM DESCRIPTION: RAD - Chest Single View - 03/10/2022 2:39 am CLINICAL HISTORY: 26 years, Male, COUGH COMPARISON: None. FINDINGS: Single view of the chest was obtained portable. No prior films are available for compariso n. The cardiomediastinal silhouette demonstrate to be unremarkable. The heart is not enlarged. The thoracic aorta is unremarkable. Costophrenic angles are sharp. No areas of consolidation or caty s are seen. The rest of the soft tissue and bony structures demonstrate to be unremarkable. IMPRESSION: NO ACUTE CARDIOPULMONARY DISEASE SEEN. Electronically signed by: Shahbaz Cotton MD 03/10/2022 2:57 AM CDT Due to temporary technical issues with the PACS/Fluency reporting system, reports are being signed by the in house radiologist without review as a courtesy to ensure prompt reporting. The interpreting r adiologist is fully responsible for the content of the report.
--- NOTE | 2022-03-11 07:46 | EKG ---
Test Date: 2022-03-10 Test Time: 02:41:25 Informatics Scientist: MEASUREMENT RESULTS: Intervals: Rate: 71 VT: 180 QRSD: 108 QT: 362 QTc: 393 [place]: P: 53 VT: 180 QRS: -36 T: -28 INTERPRETIVE STATEMENTS: Normal sinus rhythm Left axis deviation Incomplete right bundle branch block Minimal voltage criteria for LVH, may be normal variant T wave abnormality, consider anterior ischemia Abnormal ECG No previous ECG available for comparison Electronically Signed On 03-11-22 07:42:37 CDT by Eladio Mcqueen
== END 2022-03-10 05:24 | disposition home or self-care (01) ==
LOC: ER 01:09
DX: R73.9 Hyperglycemia, unspecified (principal)
CPT/HCPCS: 96361; 93005; 85025; 80048; 36415; 83735; 82947; 80076; 84484; 83690; 71045; 96360; 99283; J7030